=== PATIENT | male | born 1950 | race African-American/Black ===

== ENCOUNTER 2024-10-01 11:05 | Observation (INO) ==
[2024-10-01] MEDS ORDERED: NITROSTAT SL PRN (13:00)
[2024-10-01] MEDS ORDERED: NovoLIN R (or HumuLIN R) SUBCUT PRN (13:05)
[2024-10-01] MEDS ORDERED: VENTOLIN or PROAIR HFA IN PRN (13:05)
[2024-10-01 13:59] LABS: BASOPHILS # (AUTO) 0.1 X10^3/uL (0.0-0.1); BASOPHILS % (AUTO) 1.1 % (0.2-1.0); EOSINOPHILS % (AUTO) 0.5 % (0.9-2.9); HEMATOCRIT 36.9 % (42.0-54.0); LYMPHOCYTES # (AUTO) 1.1 X10^3/uL (1.3-2.9); LYMPHOCYTES % (AUTO) 14.5 % (21.0-51.0); MEAN CORPUSCULAR HEMOGLOBIN 30.1 pg (27.0-34.0); MEAN CORPUSCULAR HGB CONC 32.6 g/dL (33.0-35.0); MEAN CORPUSCULAR VOLUME 92.5 fL (80.0-100.0); MONOCYTES # (AUTO) 1.1 x10^3/uL (0.3-0.8); MONOCYTES % (AUTO) 14.7 % (0.0-13.0); NEUTROPHILS # (AUTO) 5.4 x10^3/uL (2.2-4.8); NEUTROPHILS % (AUTO) 69.2 % (42.0-75.0); PLATELET COUNT 204 X10^3/uL (150.0-450.0); RED BLOOD COUNT 3.99 X10^6/uL (4.7-6.0); RED CELL DISTRIBUTION WIDTH 14.2 % (11.6-16.5); WHITE BLOOD COUNT 7.8 X10^3/uL (3.6-10.0)
[2024-10-01 14:06] LABS: ALANINE AMINOTRANSFERASE 36 Units/L (12-78); ALKALINE PHOSPHATASE 111 Units/L (46-116); ASPARTATE AMINO TRANSFERASE 35 Units/L (15-37); BLOOD UREA NITROGEN 10 mg/dL (7-18); CALCIUM 9.3 mg/dL (8.5-10.1); CARBON DIOXIDE 30.6 mmol/L (21-32); CHLORIDE 98 mmol/L (98-107); COR CA(FOR HYPOALB) 10.1 mg/dL (8.5-10.1); CREATININE 1.23 mg/dL (0.70-1.30); GLUCOSE 54 mg/dL (65-99); POTASSIUM 3.3 mmol/L (3.5-5.1); SODIUM 135 mmol/L (136-145); TOTAL PROTEIN 7.6 g/dL (6.4-8.2); eGFR NON BLACK RACES > 60 (>60)
[2024-10-01] MEDS: LR 1,000 ML IV 1,000 ML IV SCH (14:16)
[2024-10-01] MEDS: LOVENOX INJ 80 MG SYR SC SCH (14:16)
[2024-10-01] MEDS: NEURONTIN CAP 400 MG PO SCH (14:17)
[2024-10-01] MEDS ORDERED: PROVENTIL NEB TX 0.083% 2.5MG/ 3ML NEB PRN (14:18)
[2024-10-01] MEDS: DILAUDID INJ IVP PRN (15:18)
[2024-10-01] MEDS: DILAUDID INJ ONE (15:20)
[2024-10-01] MEDS: D50W ABBOJECT SYR IV ONE (16:00)
[2024-10-01] MEDS: OMNIPAQUE 350 mg/mL 50 mL BTL 50 ML ONE (16:43)
[2024-10-01] MEDS: NS 100 ML IV 100 ML ONE (16:43)
[2024-10-01] MEDS: OMNIPAQUE 350 mg/mL 100 mL BTL 100 ML ONE (16:44)
[2024-10-01] MEDS ORDERED: APRESOLINE INJ 20 MG VIAL ONE (17:02)
[2024-10-01] MEDS: APRESOLINE INJ 20 MG VIAL IVP ONE (17:04)
--- NOTE | 2024-10-01 17:49 | CT ---
EXAM:CTA AORTA WITH RUNOFFHISTORY:gangrenous changes right foot.;COMPARISON:None.TECHNIQUE:CT angiography of the abdominal aorta with bilateral lower extremity runoff with intravenous contrast. Three-dimensional reconstructions and/or MIPS images were produced and reviewed.FINDINGS:CTA aorta: The abdominal aorta tapers normally with multifocal mixed density atherosclerotic plaque. There is a critical stenosis noted at the origin of the celiac axis. The SMA is patent with bulky noncalcified plaque 2 cm beyond the origin. High-grade stenosis is noted at the origin of both renal arteries secondary to mixed density atherosclerotic plaque. The MICHAEL is patent. There is flow in the bilateral common iliac arteries. There is extensive atherosclerotic calcification and disease within the bilateral internal iliac arteries. There is flow in the bilateral external iliac arteries.There is a high-grade stenosis of the proximal right superficial femoral artery. There is a high-grade stenosis of the proximal left superficial femoral artery.Stones are visible in the gallbladder. The portions of the liver visible demonstrate no mass. The kidneys are not obstructed. Portions of the spleen visible appear normal. The pancreas is noninflamed.No pelvic free fluid. Colon diverticulosis. 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 There is extensive, multifocal atherosclerotic plaque within the right calf trifurcation. Trickle flow is noted in the proximal right calf trifurcation. Imaging of the distal trifurcation is performed at a delayed/venous phase limiting evaluation of the arteries. There is venous flow present in the right ankle and foot.There is extensive atherosclerotic plaque within the left superficial femoral artery with multiple foci of moderate luminal narrowing. There is occlusion noted within the left popliteal artery without visible flow in the left calf trifurcation. 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 Distal to the proximal right calf trifurcation the lower extremity runoff examination is delayed and venous phase images are submitted. There is good venous flow noted in the right ankle and foot. Patency of the distal right calf trifurcation can not be discerned.Occlusion of the proximal left popliteal artery.No definitive flow in the left calf trifurcation.All CT scans at this facility use dose modulation, iterative reconstruction, and/or weight based dosing when appropriate to reduce radiation dose to as low as reasonably achievable.THIS IS AN ELECTRONICALLY VERIFIED FINAL REPORT10/01/2024 5:46 PM - Electronically signed by Gaston Kim MD
--- NOTE | 2024-10-01 18:00 | EKG ---
Test Reason : PRE-OP Blood Pressure : */* mmHG Vent. Rate : 103 BPM Atrial Rate : 103 BPM P-R Int : 150 ms QRS Dur : 152 ms QT Int : 394 ms P-R-T Axes : 25 -5 50 degrees QTc Int : 516 ms Sinus tachycardia Right bundle branch block Abnormal ECG No previous ECGs available Confirmed by Gurpreet Mtz MD ([id number]) on 10/02/2024 7:20:14 AM Referred By: Confirmed By: Gurpreet Mtz MD
[2024-10-01] MEDS ORDERED: HIBICLENS WASH ONE (20:24)
[2024-10-01] MEDS: SNACK - Diabetic Appropriate PO SCH (20:33)
[2024-10-01] MEDS: ENTRESTO 24/26 MG TABLET PO SCH (20:34)
[2024-10-01] MEDS: LOPRESSOR TAB 25 MG PO SCH (20:34)
[2024-10-01] MEDS: ZYLOPRIM PO SCH (20:34)
[2024-10-01] MEDS: HIBICLENS WASH EXT ONE (20:34)
[2024-10-02 05:06] LABS: BASOPHILS % (AUTO) 0.3 % (0.2-1.0); EOSINOPHILS % (AUTO) 0.5 % (0.9-2.9); HEMATOCRIT 37.7 % (42.0-54.0); HEMOGLOBIN 12.4 g/dL (13.5-18.0); LYMPHOCYTES % (AUTO) 19.3 % (21.0-51.0); MEAN CORPUSCULAR HEMOGLOBIN 30.5 pg (27.0-34.0); MEAN CORPUSCULAR VOLUME 92.5 fL (80.0-100.0); MEAN PLATELET VOLUME 10.3 fL (7.4-11.0); MONOCYTES # (AUTO) 0.9 x10^3/uL (0.3-0.8); MONOCYTES % (AUTO) 15.9 % (0.0-13.0); NEUTROPHILS # (AUTO) 3.5 x10^3/uL (2.2-4.8); PLATELET COUNT 180 X10^3/uL (150.0-450.0); RED BLOOD COUNT 4.07 X10^6/uL (4.7-6.0); RED CELL DISTRIBUTION WIDTH 14.7 % (11.6-16.5); WHITE BLOOD COUNT 5.4 X10^3/uL (3.6-10.0)
[2024-10-02 05:17] LABS: ALANINE AMINOTRANSFERASE 28 Units/L (12-78); ALBUMIN 2.7 g/dL (3.4-5.0); ALKALINE PHOSPHATASE 104 Units/L (46-116); ASPARTATE AMINO TRANSFERASE 37 Units/L (15-37); BLOOD UREA NITROGEN 8 mg/dL (7-18); CALCIUM 9.2 mg/dL (8.5-10.1); CARBON DIOXIDE 28.7 mmol/L (21-32); CHLORIDE 101 mmol/L (98-107); COR CA(FOR HYPOALB) 10.2 mg/dL (8.5-10.1); CREATININE 0.97 mg/dL (0.70-1.30); MAGNESIUM 1.8 mg/dL (2.0-2.9); POTASSIUM 3.6 mmol/L (3.5-5.1); SODIUM 139 mmol/L (136-145); TOTAL PROTEIN 7.2 g/dL (6.4-8.2); eGFR NON BLACK RACES > 60 (>60)
[2024-10-02 05:22] LABS: GLUCOSE 40 mg/dL (65-99)
[2024-10-02] MEDS: D50W ABBOJECT SYR IV ONE (05:25)
[2024-10-02] MEDS ORDERED: D50W ABBOJECT SYR ONE (05:28)
[2024-10-02] MEDS ORDERED: D5 LR 1,000 ML 1,000 ML IV ONE (05:39)
[2024-10-02] MEDS: D5 LR 1,000 ML 1,000 ML IV SCH (05:40)
[2024-10-02] MEDS ORDERED: CONSULT PHARMACY - POTASSIUM & MAGNESIUM XX SCH (07:00)
--- NOTE | 2024-10-02 07:46 | RAD ---
EXAM:Portable chestHISTORY:Preop vascular surgeryCOMPARISON:NoneFINDINGS:Patient is status post median sternotomy and CABG. Heart is enlarged. No congestive heart failure is noted. No infiltrates or pleural effusions identified. Bony thorax is unremarkable.IMPRESSION:Cardiomegaly without congestive heart failureLungs clearTHIS IS AN ELECTRONICALLY VERIFIED FINAL REPORT10/02/2024 7:43 AM - Electronically signed by Aime Stack MD
[2024-10-02] MEDS: PROTONIX TAB 40 MG PO SCH (08:38)
[2024-10-02] MEDS: K-DUR TAB 20 MEQ PO SCH (08:38)
[2024-10-02] MEDS: CELEBREX PO SCH (08:38)
[2024-10-02] MEDS: DETROL LA 2 MG CAP EXT REL PO SCH (08:38)
[2024-10-02] MEDS: TOVIAZ PO SCH (08:38)
[2024-10-02] MEDS: ASPIRIN EC 81 MG PO SCH (08:38)
[2024-10-02] MEDS: VERSED ONE (08:51)
[2024-10-02] MEDS: FENTANYL VIAL INJ 100 mcg ONE (08:52)
[2024-10-02] MEDS: ZOFRAN INJ 4 MG VIAL ONE (08:53)
[2024-10-02] MEDS: REGLAN INJ 10 MG VIAL ONE (08:53)
[2024-10-02] MEDS: DECADRON INJ ONE (08:53)
[2024-10-02] MEDS: PEPCID 20 MG VIAL ONE (08:53)
[2024-10-02] MEDS: DIPRIVAN VIAL 20 ML ONE ×2 (08:54→11:43)
[2024-10-02] MEDS: HEPARIN SODIUM INJ 5000 UNITS ONE ×2 (09:09→12:13)
[2024-10-02] MEDS: DUONEB 0.5 MG/3 MG (3 mL) NEB ONE (09:57)
[2024-10-02] MEDS: NS 1,000 ML IV 1,000 ML ONE (10:07)
[2024-10-02] MEDS: NS 1,000 ML IV 600 ML IV PRN (10:30)
[2024-10-02] MEDS: VERSED IVP PRN (10:32)
[2024-10-02] MEDS: ZOFRAN INJ 4 MG VIAL IVP PRN (10:33)
[2024-10-02] MEDS: NS 100 ML IV 100 ML ONE (10:34)
[2024-10-02] MEDS: ANCEF VIAL 1 GRAM ONE (10:34)
[2024-10-02] MEDS: PEPCID 20 MG VIAL IVP PRN (10:34)
[2024-10-02] MEDS: REGLAN INJ 10 MG VIAL IVP PRN (10:36)
[2024-10-02] MEDS: ANCEF VIAL 1 GRAM IV PRN (10:38)
[2024-10-02] MEDS: XYLOCAINE 2 % (PLAIN) INJ PRN (10:45)
[2024-10-02] MEDS: KETAMINE HCL IV PRN (10:46)
[2024-10-02] MEDS: PRECEDEX INJ VIAL IVP PRN (10:46)
[2024-10-02] MEDS: DIPRIVAN VIAL 350 ML IVP PRN (10:46)
[2024-10-02] MEDS: DECADRON INJ IVP PRN (10:52)
[2024-10-02] MEDS: EPHEDRINE SULFATE INJ ONE (10:53)
[2024-10-02] MEDS: VISIPAQUE 50 ML ONE (11:04)
[2024-10-02] MEDS: HEPARIN 1,000 UNIT/500 ML-NS 3,000 UNIT/1,500 ML IV.SOLN ONE (11:04)
[2024-10-02] MEDS: VISIPAQUE 100 ML ONE (11:04)
[2024-10-02] MEDS: NEO-SYNEPHRINE INJ ONE (11:04)
[2024-10-02] MEDS: MARCAINE 0.5% ONE (11:04)
[2024-10-02] MEDS: FENTANYL VIAL INJ 100 mcg IVP PRN (11:28)
[2024-10-02] MEDS: NITROGLYCERIN IV PREMIX 50 MG 50 MG/250 ML BAG ONE (12:13)
[2024-10-02] MEDS: HEPARIN SODIUM INJ 5000 UNITS IVP PRN (12:13)
[2024-10-02] MEDS: EPHEDRINE SULFATE INJ IVP PRN (12:16)
[2024-10-02] MEDS: NEO-SYNEPHRINE INJ IVP PRN (12:19)
--- NOTE | 2024-10-02 12:34 | OR.IMMED ---
IMMEDIATE POST-OP NOTE Immediate Post-Op Note Date of surgery/procedure: 10/02/24 Pre-Op Diagnosis: Critical limb threatening ischemia right leg Post-Op Diagnosis: Same Procedure: Aortogram, arteriogram right leg, atherectomy and drug-coated balloon angioplasty of entire right superficial femoral artery, angioplasty right peroneal artery Description of Procedure: Dictated Surgeon/Hook Loader: Porfirio Montero MD, FACS Findings: Severe disease of the takeoff of the right superficial femoral artery and severe disease of the entire superficial femoral artery and in the popliteal artery including the popliteal stent. One-vessel runoff via the peroneal artery with very poor runoff into the right foot. Estimated Blood Loss: 100 cc Complications: None Discharge Progress Notes: Patient returned to the CCU. Will observe.
[2024-10-03] MEDS: SOMA TAB 350 MG PO PRN (00:49)
[2024-10-03 05:12] VITALS: O2SAT 96
[2024-10-03 05:44] LABS: BASOPHILS # (AUTO) 0.1 X10^3/uL (0.0-0.1); BASOPHILS % (AUTO) 0.6 % (0.2-1.0); HEMATOCRIT 37.2 % (42.0-54.0); HEMOGLOBIN 12.1 g/dL (13.5-18.0); LYMPHOCYTES # (AUTO) 0.8 X10^3/uL (1.3-2.9); LYMPHOCYTES % (AUTO) 7.3 % (21.0-51.0); MEAN CORPUSCULAR HEMOGLOBIN 29.9 pg (27.0-34.0); MEAN CORPUSCULAR HGB CONC 32.5 g/dL (33.0-35.0); MEAN CORPUSCULAR VOLUME 92.1 fL (80.0-100.0); MEAN PLATELET VOLUME 10.8 fL (7.4-11.0); MONOCYTES # (AUTO) 1.1 x10^3/uL (0.3-0.8); NEUTROPHILS % (AUTO) 82.1 % (42.0-75.0); PLATELET COUNT 201 X10^3/uL (150.0-450.0); RED BLOOD COUNT 4.04 X10^6/uL (4.7-6.0); RED CELL DISTRIBUTION WIDTH 14.3 % (11.6-16.5)
[2024-10-03 05:57] LABS: ALANINE AMINOTRANSFERASE 24 Units/L (12-78); ALBUMIN 2.6 g/dL (3.4-5.0); ALKALINE PHOSPHATASE 97 Units/L (46-116); ASPARTATE AMINO TRANSFERASE 24 Units/L (15-37); BLOOD UREA NITROGEN 14 mg/dL (7-18); CALCIUM 9.1 mg/dL (8.5-10.1); CARBON DIOXIDE 28.5 mmol/L (21-32); CHLORIDE 100 mmol/L (98-107); COR CA(FOR HYPOALB) 10.2 mg/dL (8.5-10.1); COR NA(FOR HYPERGLY) 140 mmol/L (136-145); CREATININE 1.24 mg/dL (0.70-1.30); GLUCOSE 203 mg/dL (65-99); POTASSIUM 4.9 mmol/L (3.5-5.1); SODIUM 138 mmol/L (136-145); TOTAL PROTEIN 7.1 g/dL (6.4-8.2); eGFR NON BLACK RACES > 60 (>60)
[2024-10-03 06:05] LABS: PLATELET MORPHOLOGY COMMENT NORMAL (NORMAL)
[2024-10-03 08:01] VITALS: TEMP 97.9
--- NOTE | 2024-10-03 09:15 | W.DIS.FURT ---
Summary of Discharge Discharge Summary of Date Date of Exam: 10/03/24 Admission Date Date of Admission: 10/01/24 Admission Diagnosis Hospital Course: 74 yo male with significant cardiac history and history of peripheral vascular disease with left below-knee amputation. Presented to my office with severe rest pain of the right leg and dry gangrenous changes of the right great toe and small toe. He was admitted and placed on therapeutic Lovenox. CT angiogram showed severe disease of the right superficial femoral artery and 1 small area of near complete occlusion with 1 vessel runoff via the right peroneal artery with poor runoff into the right foot. He underwent atherectomy and drug-coated balloon angioplasty of the right superficial femoral artery and angioplasty of the right peroneal artery. Flow did increase to the foot but I am still concerned that he will either lose all of his toes and maybe the foot as well. His pain is relieved at this time. He be discharged home on usual medications plus Percocet 5 mg tablets , 1 6 hours PRN pain ain. We will contin ue his Eliquis 5 milligrams twice daily and continue his Plavix . I will see him next week and decide on the level of amputation he will require. Vital Signs: Vital Signs (72 hours) 10/01/24 13:20 10/01/24 15:18 10/01/24 15:47 Temperature 98.7 F Pulse Rate Respiratory Rate 22 Blood Pressure O2 Sat by Pulse Oximetry Oxygen Delivery Method Room Air Oxygen Flow Rate FIO2% 10/01/24 15:48 10/01/24 13:11 10/01/24 13:15 Temperature Pulse Rate 105 H 86 Respiratory Rate 16 15 14 Blood Pressure O2 Sat by Pulse Oximetry 95 92 L Oxygen Delivery Method Oxygen Flow Rate FIO2% 10/01/24 13:15 10/01/24 13:30 10/01/24 13:45 Temperature Pulse Rate 85 102 H Respiratory Rate 17 17 Blood Pressure 125/56 O2 Sat by Pulse Oximetry 91 L 93 L Oxygen Delivery Method Oxygen Flow Rate FIO2% 10/01/24 14:00 10/01/24 14:15 10/01/24 14:25 Temperature Pulse Rate 99 H 82 98 H Respiratory Rate 14 17 12 Blood Pressure O2 Sat by Pulse Oximetry 94 L 95 94 L Oxygen Delivery Method Oxygen Flow Rate FIO2% 10/01/24 14:25 10/01/24 14:30 10/01/24 14:45 Temperature Pulse Rate 98 H 97 H Respiratory Rate 13 14 Blood Pressure 168/72 O2 Sat by Pulse Oximetry 95 92 L Oxygen Delivery Method Oxygen Flow Rate FIO2% 10/01/24 15:00 10/01/24 15:00 10/01/24 15:15 Temperature Pulse Rate 81 94 H Respiratory Rate 13 16 Blood Pressure 175/75 O2 Sat by Pulse Oximetry 92 L 92 L Oxygen Delivery Method Oxygen Flow Rate FIO2% 10/01/24 15:30 10/01/24 15:45 10/01/24 16:00 Temperature Pulse Rate 103 H 81 88 Respiratory Rate 19 13 15 Blood Pressure O2 Sat by Pulse Oximetry 94 L 94 L 88 L Oxygen Delivery Method Oxygen Flow Rate FIO2% 10/01/24 16:01 10/01/24 16:01 10/01/24 17:51 Temperature 98.7 F Pulse Rate 96 H Respiratory Rate 14 21 Blood Pressure 171/72 O2 Sat by Pulse Oximetry 91 L Oxygen Delivery Method Oxygen Flow Rate FIO2% 10/01/24 18:15 10/01/24 18:21 10/01/24 20:00 Temperature 99.0 F Pulse Rate 107 H Respiratory Rate 20 15 Blood Pressure 133/57 O2 Sat by Pulse Oximetry 98 Oxygen Delivery Method Nasal Cannula Nasal Cannula Oxygen Flow Rate 2 2 FIO2% 28 10/01/24 20:21 10/02/24 03:26 10/01/24 19:00 Temperature Pulse Rate Respiratory Rate 20 Blood Pressure O2 Sat by Pulse Oximetry Oxygen Delivery Method Nasal Cannula Nasal Cannula Oxygen Flow Rate 2 2 FIO2% 28 10/02/24 00:00 10/02/24 04:00 10/02/24 03:56 Temperature 99.3 F 99.0 F Pulse Rate 72 89 Respiratory Rate 17 16 20 Blood Pressure 135/62 144/65 O2 Sat by Pulse Oximetry 97 96 Oxygen Delivery Method Nasal Cannula Nasal Cannula Oxygen Flow Rate 2 2 FIO2% 10/02/24 07:58 10/02/24 09:40 10/02/24 10:00 Temperature Pulse Rate 71 Respiratory Rate 18 Blood Pressure 161/73 O2 Sat by Pulse Oximetry 99 Oxygen Delivery Method Nasal Cannula Nasal Cannula Nasal Cannula Oxygen Flow Rate 2 2 FIO2% 28 10/02/24 07:00 10/02/24 07:15 10/02/24 07:30 Temperature Pulse Rate 74 86 93 H Respiratory Rate 15 16 15 Blood Pressure O2 Sat by Pulse Oximetry 97 97 98 Oxygen Delivery Method Oxygen Flow Rate FIO2% 10/02/24 07:45 10/02/24 08:00 10/02/24 08:01 Temperature 99.4 F Pulse Rate 95 H 95 H Respiratory Rate 19 17 Blood Pressure 189/86 O2 Sat by Pulse Oximetry 100 97 Oxygen Delivery Method Oxygen Flow Rate FIO2% 10/02/24 08:01 10/02/24 08:15 10/02/24 08:30 Temperature Pulse Rate 77 91 H 87 Respiratory Rate 16 13 15 Blood Pressure O2 Sat by Pulse Oximetry 99 99 99 Oxygen Delivery Method Oxygen Flow Rate FIO2% 10/02/24 08:45 10/02/24 09:00 10/02/24 09:15 Temperature Pulse Rate 92 H 95 H 74 Respiratory Rate 17 16 16 Blood Pressure O2 Sat by Pulse Oximetry 100 100 99 Oxygen Delivery Method Oxygen Flow Rate FIO2% 10/02/24 09:30 10/02/24 09:45 10/02/24 14:37 Temperature Pulse Rate 94 H 91 H Respiratory Rate 17 16 18 Blood Pressure O2 Sat by Pulse Oximetry 99 98 Oxygen Delivery Method Oxygen Flow Rate FIO2% 10/02/24 16:45 10/02/24 09:52 10/02/24 12:45 Temperature Pulse Rate 91 H Respiratory Rate 16 Blood Pressure 128/59 O2 Sat by Pulse Oximetry 100 Oxygen Delivery Method Oxygen Flow Rate FIO2% 10/02/24 12:46 10/02/24 13:00 10/02/24 13:15 Temperature Pulse Rate 72 82 72 Respiratory Rate 20 19 Blood Pressure O2 Sat by Pulse Oximetry 97 96 95 Oxygen Delivery Method Oxygen Flow Rate FIO2% 10/02/24 13:30 10/02/24 13:45 10/02/24 13:51 Temperature Pulse Rate 76 83 82 Respiratory Rate 15 17 29 H Blood Pressure O2 Sat by Pulse Oximetry 92 L 97 95 Oxygen Delivery Method Oxygen Flow Rate FIO2% 10/02/24 13:51 10/02/24 14:00 10/02/24 14:00 Temperature Pulse Rate 71 Respiratory Rate 16 Blood Pressure 111/53 116/58 O2 Sat by Pulse Oximetry 95 Oxygen Delivery Method Oxygen Flow Rate FIO2% 10/02/24 14:15 10/02/24 14:15 10/02/24 14:30 Temperature Pulse Rate 71 72 Respiratory Rate 18 18 Blood Pressure 124/59 O2 Sat by Pulse Oximetry 97 97 Oxygen Delivery Method Oxygen Flow Rate FIO2% 10/02/24 14:30 10/02/24 14:45 10/02/24 14:45 Temperature Pulse Rate 73 Respiratory Rate 25 H Blood Pressure 134/63 130/61 O2 Sat by Pulse Oximetry 97 Oxygen Delivery Method Oxygen Flow Rate FIO2% 10/02/24 15:00 10/02/24 15:00 10/02/24 15:15 Temperature Pulse Rate 75 76 Respiratory Rate 12 14 Blood Pressure 129/67 O2 Sat by Pulse Oximetry 98 98 Oxygen Delivery Method Oxygen Flow Rate FIO2% 10/02/24 15:15 10/02/24 15:30 10/02/24 15:30 Temperature Pulse Rate 90 Respiratory Rate 13 Blood Pressure 125/61 128/69 O2 Sat by Pulse Oximetry 97 Oxygen Delivery Method Oxygen Flow Rate FIO2% 10/02/24 15:44 10/02/24 15:45 10/02/24 15:47 Temperature Pulse Rate 91 H 91 H Respiratory Rate 13 15 Blood Pressure 137/68 O2 Sat by Pulse Oximetry 98 97 Oxygen Delivery Method Oxygen Flow Rate FIO2% 10/02/24 16:00 10/02/24 16:00 10/02/24 15:07 Temperature Pulse Rate 90 Respiratory Rate 16 20 Blood Pressure 142/81 O2 Sat by Pulse Oximetry 97 Oxygen Delivery Method Oxygen Flow Rate FIO2% 10/02/24 16:15 10/02/24 16:15 10/02/24 16:30 Temperature 97.7 F Pulse Rate 88 Respiratory Rate 14 Blood Pressure 146/70 122/78 O2 Sat by Pulse Oximetry 99 Oxygen Delivery Method Oxygen Flow Rate FIO2% 10/02/24 16:30 10/02/24 16:45 10/02/24 16:45 Temperature Pulse Rate 79 90 Respiratory Rate 12 13 Blood Pressure 130/69 O2 Sat by Pulse Oximetry 93 L 97 Oxygen Delivery Method Oxygen Flow Rate FIO2% 10/02/24 17:00 10/02/24 17:00 10/02/24 17:15 Temperature Pulse Rate 96 H Respiratory Rate 12 Blood Pressure 134/71 120/61 O2 Sat by Pulse Oximetry 98 Oxygen Delivery Method Oxygen Flow Rate FIO2% 10/02/24 17:15 10/02/24 17:15 10/02/24 17:30 Temperature Pulse Rate 93 H 96 H Respiratory Rate 13 18 19 Blood Pressure O2 Sat by Pulse Oximetry 99 98 Oxygen Delivery Method Oxygen Flow Rate FIO2% 10/02/24 17:45 10/02/24 18:00 10/02/24 18:00 Temperature Pulse Rate 101 H 97 H Respiratory Rate 24 13 Blood Pressure 135/73 O2 Sat by Pulse Oximetry 97 96 Oxygen Delivery Method Oxygen Flow Rate FIO2% 10/02/24 18:15 10/02/24 18:30 10/02/24 18:45 Temperature Pulse Rate 96 H 93 H 95 H Respiratory Rate 12 21 11 L Blood Pressure O2 Sat by Pulse Oximetry 96 97 96 Oxygen Delivery Method Oxygen Flow Rate FIO2% 10/02/24 19:00 10/02/24 19:00 10/02/24 20:00 Temperature Pulse Rate 93 H 99 H Respiratory Rate 12 14 Blood Pressure 129/67 133/61 O2 Sat by Pulse Oximetry 96 96 Oxygen Delivery Method Nasal Cannula Oxygen Flow Rate 2 FIO2% 10/02/24 21:36 10/02/24 21:00 10/02/24 20:15 Temperature 98.5 F Pulse Rate 99 H Respiratory Rate 16 14 Blood Pressure 143/75 O2 Sat by Pulse Oximetry 99 Oxygen Delivery Method Nasal Cannula Oxygen Flow Rate 2 FIO2% 28 10/02/24 20:15 10/02/24 22:00 10/02/24 23:00 Temperature Pulse Rate 100 H 103 H 101 H Respiratory Rate 14 14 Blood Pressure 149/67 135/62 O2 Sat by Pulse Oximetry 100 96 96 Oxygen Delivery Method Oxygen Flow Rate FIO2% 10/02/24 22:06 10/03/24 00:00 10/03/24 01:00 Temperature 98.0 F Pulse Rate 97 H 73 Respiratory Rate 15 16 13 Blood Pressure 131/79 111/68 O2 Sat by Pulse Oximetry 97 95 Oxygen Delivery Method Oxygen Flow Rate FIO2% 10/03/24 02:00 10/03/24 03:00 10/03/24 04:00 Temperature 98.1 F Pulse Rate 95 H 70 67 Respiratory Rate 14 14 14 Blood Pressure 117/54 124/60 145/60 O2 Sat by Pulse Oximetry 95 95 95 Oxygen Delivery Method Oxygen Flow Rate FIO2% 10/03/24 05:00 10/03/24 05:59 10/02/24 22:01 Temperature Pulse Rate 67 69 97 H Respiratory Rate 14 14 15 Blood Pressure 113/55 120/56 O2 Sat by Pulse Oximetry 96 96 95 Oxygen Delivery Method Oxygen Flow Rate FIO2% 10/02/24 22:15 10/02/24 22:30 10/02/24 22:45 Temperature Pulse Rate 101 H 102 H 102 H Respiratory Rate 15 16 11 L Blood Pressure O2 Sat by Pulse Oximetry 94 L 95 94 L Oxygen Delivery Method Oxygen Flow Rate FIO2% 10/02/24 23:00 10/02/24 23:01 10/02/24 23:01 Temperature Pulse Rate 84 84 Respiratory Rate 16 15 Blood Pressure 135/62 O2 Sat by Pulse Oximetry 91 L 94 L Oxygen Delivery Method Oxygen Flow Rate FIO2% 10/02/24 23:15 10/02/24 23:30 10/02/24 23:45 Temperature Pulse Rate 83 105 H 81 Respiratory Rate 15 19 16 Blood Pressure O2 Sat by Pulse Oximetry 95 92 L 98 Oxygen Delivery Method Oxygen Flow Rate FIO2% 10/03/24 00:00 10/03/24 00:00 10/03/24 00:15 Temperature Pulse Rate 78 72 Respiratory Rate 19 15 Blood Pressure 131/79 O2 Sat by Pulse Oximetry 95 97 Oxygen Delivery Method Oxygen Flow Rate FIO2% 10/03/24 00:30 10/03/24 00:45 10/03/24 01:00 Temperature Pulse Rate 72 97 H 73 Respiratory Rate 12 21 15 Blood Pressure O2 Sat by Pulse Oximetry 96 92 L 94 L Oxygen Delivery Method Oxygen Flow Rate FIO2% 10/03/24 01:01 10/03/24 01:01 10/03/24 01:15 Temperature Pulse Rate 98 H 71 Respiratory Rate 21 16 Blood Pressure 112/68 O2 Sat by Pulse Oximetry 93 L 96 Oxygen Delivery Method Oxygen Flow Rate FIO2% 10/03/24 01:30 10/03/24 01:45 10/03/24 02:00 Temperature Pulse Rate 69 68 82 Respiratory Rate 14 15 14 Blood Pressure O2 Sat by Pulse Oximetry 99 98 Oxygen Delivery Method Oxygen Flow Rate FIO2% 10/03/24 02:01 10/03/24 02:01 10/03/24 02:15 Temperature Pulse Rate 72 70 Respiratory Rate 14 15 Blood Pressure 117/54 O2 Sat by Pulse Oximetry Oxygen Delivery Method Oxygen Flow Rate FIO2% 10/03/24 02:30 10/03/24 02:45 10/03/24 03:00 Temperature Pulse Rate 69 68 Respiratory Rate 14 Blood Pressure 124/60 O2 Sat by Pulse Oximetry Oxygen Delivery Method Oxygen Flow Rate FIO2% 10/03/24 03:00 10/03/24 03:15 10/03/24 03:30 Temperature Pulse Rate 92 H 68 69 Respiratory Rate 17 14 15 Blood Pressure O2 Sat by Pulse Oximetry Oxygen Delivery Method Oxygen Flow Rate FIO2% 10/03/24 03:45 10/03/24 04:00 10/03/24 04:00 Temperature Pulse Rate 68 67 Respiratory Rate 15 15 Blood Pressure 145/60 O2 Sat by Pulse Oximetry Oxygen Delivery Method Oxygen Flow Rate FIO2% 10/03/24 04:15 10/03/24 04:30 10/03/24 04:45 Temperature Pulse Rate 69 67 66 Respiratory Rate 15 13 14 Blood Pressure O2 Sat by Pulse Oximetry Oxygen Delivery Method Oxygen Flow Rate FIO2% 10/03/24 05:00 10/03/24 05:01 10/03/24 05:01 Temperature Pulse Rate 67 67 Respiratory Rate 15 15 Blood Pressure 113/55 O2 Sat by Pulse Oximetry Oxygen Delivery Method Oxygen Flow Rate FIO2% 10/03/24 05:15 10/03/24 05:30 10/03/24 05:45 Temperature Pulse Rate 67 67 68 Respiratory Rate 13 14 14 Blood Pressure O2 Sat by Pulse Oximetry Oxygen Delivery Method Oxygen Flow Rate FIO2% 10/03/24 06:00 10/03/24 06:00 10/03/24 06:15 Temperature Pulse Rate 69 68 Respiratory Rate 15 14 Blood Pressure 120/56 O2 Sat by Pulse Oximetry Oxygen Delivery Method Oxygen Flow Rate FIO2% 10/03/24 06:30 10/03/24 06:45 10/03/24 07:00 Temperature Pulse Rate 65 67 Respiratory Rate 13 14 Blood Pressure 128/59 O2 Sat by Pulse Oximetry Oxygen Delivery Method Oxygen Flow Rate FIO2% 10/03/24 07:00 10/03/24 07:15 10/03/24 07:30 Temperature Pulse Rate 69 68 67 Respiratory Rate 20 14 15 Blood Pressure O2 Sat by Pulse Oximetry Oxygen Delivery Method Oxygen Flow Rate FIO2% 10/03/24 07:45 10/03/24 07:59 10/03/24 08:00 Temperature 97.9 F Pulse Rate 68 68 Respiratory Rate 14 15 Blood Pressure 147/64 O2 Sat by Pulse Oximetry Oxygen Delivery Method Oxygen Flow Rate FIO2% 10/03/24 08:36 Temperature Pulse Rate Respiratory Rate Blood Pressure O2 Sat by Pulse Oximetry Oxygen Delivery Method Nasal Cannula Oxygen Flow Rate 2 FIO2% 28 Labs: Laboratory Last Values WBC 11.0 X10^3/uL (3.6-10.0) H 10/03/24 04:25 RBC 4.04 X10^6/uL (4.7-6.0) L 10/03/24 04:25 Hgb 12.1 g/dL (13.5-18.0) L 10/03/24 04:25 Hct 37.2 % (42.0-54.0) L 10/03/24 04: MCV 92.1 fL (80.0-100.0) 10/03/24 04: MCH 29.9 pg (27.0-34.0) 10/03/24 04: MCHC 32.5 g/dL (33.0-35.0) L 10/03/24: RDW 14.3 % (11.6-16.5) 10/03/24: Plt Count 201 X10^3/uL (150.0-450.0) 10/03/24 04: Plt Count Comment Adequate (ADEQUATE) 10/03/24: MPV 10.8 fL (7.4-11.0) 10/03/24 04: Neut % (Auto) 82.1 % (42.0-75.0) H 10/03/24 04: Lymph % (Auto) 7.3 % (21.0-51.0) L 10/03/24 04:25 [place] % (Auto) 10.0 % (0.0-13.0) 10/03/24: Eos % (Auto) 0.0 % (0.9-2.9) L 10/03/24 04: Baso % (Auto) 0.6 % (0.2-1.0) 10/03/24: Neut # (Auto) 9.0 x10^3/uL (2.2-4.8) H 10/03/24 04:25 Lymph # (Auto) 0.8 X10^3/uL (1.3-2.9) L 10/03/24 04:25 [place] # (Auto) 1.1 x10^3/uL (0.3-0.8) H 10/03/24 04:25 Eos # (Auto) 0.0 x10^3/uL (0.0-0.2) 10/03/24 04:25 Baso # (Auto) 0.1 X10^3/uL (0.0-0.1) 10/03/24 04:25 Absolute Nucleated RBC 0.0 /100WBC 10/03/24 04:25 Total Counted 100 10/03/24 04:25 Neutrophils % (Manual) 75 % (39-76) 10/03/24 04:25 Lymphocytes % (Manual) 15 % (13-43) 10/03/24 04:25 Monocytes % (Manual) 10 % (4-9) H 10/03/24 04:25 Plt Morphology Comment Normal (NORMAL) 10/03/24 04:25 RBC Morphology Normal (NORMAL) 10/03/24 04:25 Sodium 138 mmol/L (136-145) 10/03/24 04:25 Corrected Sodium 140 mmol/L (136-145) 10/03/24 04:25 Potassium 4.9 mmol/L (3.5-5.1) 10/03/24 04:25 Chloride 100 mmol/L (98-107) 10/03/24 04:25 Carbon Dioxide 28.5 mmol/L (21-32) 10/03/24 04:25 BUN 14 mg/dL (7-18) 10/03/24 04:25 Creatinine 1.24 mg/dL (0.70-1.30) 10/03/24 04:25 Est GFR (MDRD) Af Amer > 60 (>60) 10/03/24 04:25 Est GFR (MDRD) Non-Af > 60 (>60) 10/03/24 04:25 Glucose 203 mg/dL (65-99) H 10/03/24 04:25 POC Glucose (mg/dL) 191 mg/dL (65-99) H 10/03/24 05:08 Calcium 9.1 mg/dL (8.5-10.1) 10/03/24 04:25 Corrected Calcium 10.2 mg/dL (8.5-10.1) H 10/03/24 04:25 Magnesium 1.8 mg/dL (2.0-2.9) L 10/02/24 04:18 Total Bilirubin 0.80 mg/dL (0.2-1.0) 10/03/24 04:25 AST 24 Units/L (15-37) 10/03/24 04:25 ALT 24 Units/L (12-78) 10/03/24 04:25 Alkaline Phosphatase 97 Units/L (46-116) 10/03/24 04:25 Total Protein 7.1 g/dL (6.4-8.2) 10/03/24 04:25 Albumin 2.6 g/dL (3.4-5.0) L 10/03/24 04:25 Globulin 4.5 g/dL (2.5-4.5) 10/03/24 04:25 Albumin/Globulin Ratio 0.6 Ratio (1.1-2.1) L 10/03/24 04:25 Reason For Visit: ISCHEMIC RLE Discharge Date Discharge Date: 10/03/24 Discharge Diagnosis All Active Problems (Updated 10/03/24 @ 09:11 by Porfirio Montero) Atherosclerosis of [place] arteries of extremities with rest pain, right leg (Acute) Plan of Treatment: Continue with present treatment and follow up plan. Pt is to keep follow up appointment as instructed and take medications as ordered. Discharge Medications Discharge Medications: No Known Drug Allergies [NKDA] Allergy (Verified 10/01/24 13:25) CONTINUE taking the following medications allopurinol 100 mg tablet 200 mg PO QDAY 10/01/24 [History] amlodipine 10 mg tablet 10 mg PO QDAY 10/01/24 [History] apixaban 5 mg tablet (Eliquis) 5 mg PO BID 10/01/24 [History] carisoprodol 350 mg tablet 350 mg PO TID PRN 10/01/24 [History] celecoxib 100 mg capsule 100 mg PO QDAY 10/01/24 [History] clopidogrel 75 mg tablet 75 mg PO QDAY 10/01/24 [History] colchicine 0.6 mg tablet 0.6 mg PO Q12H 10/01/24 [History] dapagliflozin propanediol 10 mg tablet (Farxiga) 10 mg PO QDAY 10/01/24 [History] famotidine 20 mg tablet 20 mg PO BID 10/01/24 [History] fesoterodine 8 mg tablet,extended release 24 hr 8 mg PO DAILY 10/01/24 [History] gabapentin 800 mg tablet 800 mg PO QID 10/01/24 [History] glipizide 10 mg tablet, extended release 24 hr 10 mg PO BID 10/01/24 [History] insulin degludec 200 unit/mL (3 mL) subcutaneous pen (Tresiba FlexTouch U-200 insulin) 55 unit subcut DAILY 10/01/24 [History] meloxicam 7.5 mg tablet 7.5 mg PO QDAY 10/01/24 [History] metoprolol tartrate 25 mg tablet 25 mg PO BID 10/01/24 [History] moexipril 15 mg tablet 15 mg PO BID 10/01/24 [History] nitroglycerin 0.4 mg sublingual tablet 0.4 mg sublingual USEASDIRECTD 10/01/24 [History] oxycodone 15 mg tablet 15 mg PO QID PRN 10/01/24 [History] sacubitril 24 mg-valsartan 26 mg tablet (Entresto) 1 tab PO BID 10/01/24 [History] tizanidine 2 mg tablet 4 mg PO TID 10/01/24 [History] tizanidine 4 mg tablet 4 mg PO TID 10/01/24 [History] Discharge Disposition Assessment: see hospital course Discharge Plan Discharge Plan Hospital Course: 74 yo male with significant cardiac history and history of peripheral vascular disease with left below-knee amputation. Presented to my office with severe rest pain of the right leg and dry gangrenous changes of the right great toe and small toe. He was admitted and placed on therapeutic Lovenox. CT angiogram showed severe disease of the right superficial femoral artery and 1 small area of near complete occlusion with 1 vessel runoff via the right peroneal artery with poor runoff into the right foot. He underwent atherectomy and drug-coated balloon angioplasty of the right superficial femoral artery and angioplasty of the right peroneal artery. Flow did increase to the foot but I am still concerned that he will either lose all of his toes and maybe the foot as well. His pain is relieved at this time. He be discharged home on usual medications plus Percocet 5 mg tablets , 1 6 hours PRN pain ain. We will contin ue his Eliquis 5 milligrams twice daily and continue his Plavix . I will see him next week and decide on the level of amputation he will require. Patient Disposition: 01 HOME, SELF-CARE Condition: Stable Health Concerns: Post Hospitalization: new medications and changes needed to prevent readmission or further decline. Pt educated and given instructions on all concerns. Care Plan Goals: see hospital course Plan of Treatment: Continue with present treatment and follow up plan. Pt is to keep follow up appointment as instructed and take medications as ordered. Assessment: see hospital course Prescription drug monitoring program results: PDMP reviewed with concerns identified Prescriptions: New oxycodone-acetaminophen [Percocet] 5-325 mg tablet 1 tab PO Q6H MDD 4 PRNQty: 30 0RF Continued carisoprodol 350 mg tablet 350 mg PO TID PRN tizanidine 2 mg tablet 4 mg PO TID tizanidine 4 mg tablet 4 mg PO TID glipizide 10 mg tablet extended release 24hr 10 mg PO BID clopidogrel 75 mg tablet 75 mg PO QDAY allopurinol 100 mg tablet 200 mg PO QDAY oxycodone 15 mg tablet 15 mg PO QID PRN meloxicam 7.5 mg tablet 7.5 mg PO QDAY famotidine 20 mg tablet 20 mg PO BID gabapentin 800 mg tablet 800 mg PO QID amlodipine 10 mg tablet 10 mg PO QDAY moexipril 15 mg tablet 15 mg PO BID nitroglycerin 0.4 mg tablet, sublingual 0.4 mg sublingual USEASDIRECTD Rx Instructions: PLACE 1 TABLET UNDER TONGUE EVERY 5 MINUTES UP 3 DOSES NEEDED. colchicine 0.6 mg tablet 0.6 mg PO Q12H celecoxib 100 mg capsule 100 mg PO QDAY metoprolol tartrate 25 mg tablet 25 mg PO BID fesoterodine 8 mg tablet extended release 24 hr 8 mg PO DAILY Eliquis 5 mg tablet 5 mg PO BID insulin degludec [Tresiba FlexTouch U-200] 200 unit/mL (3 mL) insulin pen 55 unit SUBCUT DAILY Patient Comments: [NO ORIGINAL SIG] dapagliflozin propanediol [Farxiga] 10 mg tablet 10 mg PO QDAY Entresto 24-26 mg tablet 1 tab PO BID Orders to Discharge Patient Discharge Orders: Discharge (Routine); Ordered 10/03/24 Ordered By: Porfirio Montero Follow ups/Referrals Follow ups/Referrals: Ramon Sol [CONSULTING PHYSICIAN] - 10/09/24 10:00 am (Dr. [facility].) KEVIN CARRANZA [Primary Care Provider] - 1 WEEK Porfirio Montero [STAFF PHYSICIAN] - 10/15/24 3:30 pm Instructions Stand Alone Forms: Excuse From Work or School, Find Help Web Site, Post Hospital Follow Up Care
[2024-10-03 11:13] VITALS: BP 128/58; PULSE 70; RESP 15
--- NOTE | 2024-10-05 12:38 | DR.OPNOTE ---
OP NOTE Pre-Op Diagnosis: Critical ischemia right leg Procedure Date Date Of Procedure: 10/02/24 Procedure: PROCEDURE: Diagnostic aortogram, diagnostic arteriogram right leg, atherectomy and drug-coated balloon angioplasty of the right superficial femoral and popliteal arteries, angioplasty of the right peroneal artery NARRATIVE: The patient was taken to the operative suite and placed in the supine position. The left groin and entire right leg were prepped and draped in sterile fashion. Patient was given intravenous sedation supervised by myself. Timeout for the procedure obtained. Ultrasound used to identify the femoral artery in the left groin and the skin overlying it infiltrated with 0.5% Marcaine. Ultrasound used to guide puncture of the left femoral artery and a 0.012 inch guidewire placed. Incision made over the guidewire at the skin edge with a #11 knife blade and the micro sheath placed over the guidewire into the femoral artery. Small wire exchanged for a 0.035 inch a Advantage Glidewire and the micro sheath exchanged for a 5 [place] vascular sheath. Patient given 5000 units of intravenous heparin. Omni catheter placed over the guidewire into the aorta and power injector used to perform aortogram showing normal patent aorta and iliac artery. The Omni catheter was then used to direct the guidewire down the right common iliac artery to the distal right external iliac artery. The Omni catheter exchanged for a [place] catheter and sequential arteriograms performed of the right leg showing severe disease of the near entire right superficial femoral artery and popliteal artery with 1 area of near total occlusion in the distal superficial femoral artery. The [place] catheter removed and over the guidewire the 5 [place] sheath was exchanged for a 7 [place] Catpult Sheath which was parked in the right external iliac artery. Water[place] catheter and the 0.035 guidewire used to traverse the arteries of the right leg ultimately ending in right peroneal artery all the way to the ankle. [place] catheter used to exchange 0.035 inch wire for a 0.014 inch Thruway wire. Over the 0.014 inch wire we placed the Jetstream atherectomy device and performed atherectomy of the entire right superficial femoral artery and popliteal artery. The Jetstream device removed and we were able to inflate the entire right superficial femoral artery using 2 [place] 6 mm x 200 mm drug-coated balloons and a 6 mm 150 mm [place] coated balloon with overlap of each. Each Inflated for 3 minutes. Once this was completed over the wire we placed a 2.5 mm [place] balloon measuring 220 mm in length and performed angioplasty of the right peroneal artery. It should be noted there was very poor flow into the right foot but it was now improved. After arterial intervention follow-up arteriogram performed showed excellent outcome. Wires and devices removed from the Catapult sheath. This sheath pulled back into the aorta and a 0.035 guidewire placed. Catapult sheath exchanged over the wire for a Angio-Seal device used to close the puncture of the left femoral artery. Patient taken to same-day surgery in good condition. Type of Anesthesia: Local (0.5% Marcaine) Anesthesia Comment: Plus MAC Findings: Significatn disease of the right superficial femoral artery with 1 area of near total occlusion, one-vessel runoff via the right peroneal artery with severe disease Type of Fluids Used:: Lactated Ringers Total Amount of Fluid Infused:: 600cc EBL: 100cc Complications:: none Needle/Sponge Count:: correct Disposition/Condition: Pt. tolerated procedure without difficulty. Taken to the CCU in stable conditi on.
== END 2024-10-03 12:10 | disposition home or self-care (01) ==
LOC: ICU
PROVIDERS: ADMIT Surgery; ATTEND Surgery
DX: Z01.810 Encounter for preprocedural cardiovascular examination; I10 Essential (primary) hypertension; Z72.0 Tobacco use; E11.65 Type 2 diabetes mellitus with hyperglycemia; J44.9 Chronic obstructive pulmonary disease, unspecified; I96 Gangrene, not elsewhere classified; Z79.01 Long term (current) use of anticoagulants; I25.119 Atherosclerotic heart disease of native coronary artery with unspecified angina pectoris; Z89.512 Acquired absence of left leg below knee; I70.221 Atherosclerosis of native arteries of extremities with rest pain, right leg; M19.071 Primary osteoarthritis, right ankle and foot; R94.31 Abnormal electrocardiogram [ECG] [EKG]; R00.0 Tachycardia, unspecified

== ENCOUNTER 2024-10-07 09:48 | Observation (INO) ==
[2024-10-07] MEDS: LR 1,000 ML IV 1,000 ML IV SCH (10:30)
[2024-10-07 10:41] LABS: BASOPHILS # (AUTO) 0.1 X10^3/uL (0.0-0.1); BASOPHILS % (AUTO) 0.6 % (0.2-1.0); EOSINOPHILS # (AUTO) 0.1 x10^3/uL (0.0-0.2); EOSINOPHILS % (AUTO) 0.7 % (0.9-2.9); HEMATOCRIT 37.6 % (42.0-54.0); HEMOGLOBIN 12.1 g/dL (13.5-18.0); LYMPHOCYTES # (AUTO) 1.8 X10^3/uL (1.3-2.9); LYMPHOCYTES % (AUTO) 16.9 % (21.0-51.0); MEAN CORPUSCULAR HEMOGLOBIN 29.9 pg (27.0-34.0); MEAN CORPUSCULAR HGB CONC 32.1 g/dL (33.0-35.0); MEAN CORPUSCULAR VOLUME 93.4 fL (80.0-100.0); MEAN PLATELET VOLUME 9.6 fL (7.4-11.0); MONOCYTES # (AUTO) 1.4 x10^3/uL (0.3-0.8); MONOCYTES % (AUTO) 12.6 % (0.0-13.0); NEUTROPHILS # (AUTO) 7.5 x10^3/uL (2.2-4.8); NEUTROPHILS % (AUTO) 69.2 % (42.0-75.0); PLATELET COUNT 239 X10^3/uL (150.0-450.0); RED BLOOD COUNT 4.03 X10^6/uL (4.7-6.0); RED CELL DISTRIBUTION WIDTH 14.4 % (11.6-16.5); WHITE BLOOD COUNT 10.8 X10^3/uL (3.6-10.0)
[2024-10-07] MEDS: DILAUDID INJ IVP PRN (11:03)
[2024-10-07 11:06] LABS: ALANINE AMINOTRANSFERASE 32 Units/L (12-78); ALBUMIN 3.3 g/dL (3.4-5.0); ALKALINE PHOSPHATASE 101 Units/L (46-116); ASPARTATE AMINO TRANSFERASE 33 Units/L (15-37); BLOOD UREA NITROGEN 15 mg/dL (7-18); CALCIUM 9.3 mg/dL (8.5-10.1); CARBON DIOXIDE 29.3 mmol/L (21-32); CHLORIDE 95 mmol/L (98-107); COR CA(FOR HYPOALB) 9.9 mg/dL (8.5-10.1); CREATININE 1.63 mg/dL (0.70-1.30); POTASSIUM 3.8 mmol/L (3.5-5.1); SODIUM 134 mmol/L (136-145); TOTAL PROTEIN 8.3 g/dL (6.4-8.2); eGFR NON BLACK RACES 44 (>60)
[2024-10-07 11:08] LABS: GLUCOSE 49 mg/dL (65-99)
[2024-10-07] MEDS ORDERED: NovoLIN R (or HumuLIN R) SUBCUT PRN (11:16)
[2024-10-07] MEDS: D50W ABBOJECT SYR IV ONE ×2 (11:27→20:36)
[2024-10-07 14:06] VITALS: BMI 30.2
[2024-10-07] MEDS ORDERED: ZANAFLEX PO PRN (14:46)
[2024-10-07] MEDS: NEURONTIN CAP 400 MG PO SCH (16:49)
[2024-10-07] MEDS: ROXICODONE TAB 15 MG PO PRN (16:53)
[2024-10-07] MEDS: GLUCOTROL PO SCH (18:23)
[2024-10-07] MEDS: NITROSTAT SL ONE (18:25)
[2024-10-07] MEDS ORDERED: D5 LR 1,000 ML 1,000 ML IV ONE (20:27)
[2024-10-07] MEDS: SNACK - Diabetic Appropriate PO SCH (20:36)
[2024-10-07] MEDS: D5 LR 1,000 ML 1,000 ML IV SCH (20:36)
[2024-10-07] MEDS: LOPRESSOR TAB 25 MG PO SCH (20:37)
[2024-10-07] MEDS: COLCRYS TAB 0.6 MG PO SCH (20:37)
[2024-10-07] MEDS: ENTRESTO 24/26 MG TABLET PO SCH (20:38)
[2024-10-07] MEDS ORDERED: ELIQUIS PO SCH (21:00)
[2024-10-07] MEDS: PATIENT'S HOME MEDICATION PO SCH (22:20)
[2024-10-08 06:11] LABS: BASOPHILS % (AUTO) 0.4 % (0.2-1.0); EOSINOPHILS % (AUTO) 0.4 % (0.9-2.9); HEMATOCRIT 35.1 % (42.0-54.0); HEMOGLOBIN 11.4 g/dL (13.5-18.0); LYMPHOCYTES % (AUTO) 10.9 % (21.0-51.0); MEAN CORPUSCULAR HEMOGLOBIN 30.1 pg (27.0-34.0); MEAN CORPUSCULAR HGB CONC 32.5 g/dL (33.0-35.0); MEAN CORPUSCULAR VOLUME 92.5 fL (80.0-100.0); MEAN PLATELET VOLUME 9.4 fL (7.4-11.0); MONOCYTES # (AUTO) 1.2 x10^3/uL (0.3-0.8); MONOCYTES % (AUTO) 13.4 % (0.0-13.0); NEUTROPHILS # (AUTO) 6.9 x10^3/uL (2.2-4.8); NEUTROPHILS % (AUTO) 74.9 % (42.0-75.0); PLATELET COUNT 199 X10^3/uL (150.0-450.0); RED CELL DISTRIBUTION WIDTH 14.1 % (11.6-16.5); WHITE BLOOD COUNT 9.2 X10^3/uL (3.6-10.0)
[2024-10-08 06:35] LABS: ALANINE AMINOTRANSFERASE 28 Units/L (12-78); ALBUMIN 2.7 g/dL (3.4-5.0); ALKALINE PHOSPHATASE 91 Units/L (46-116); ASPARTATE AMINO TRANSFERASE 26 Units/L (15-37); BLOOD UREA NITROGEN 13 mg/dL (7-18); CALCIUM 9.3 mg/dL (8.5-10.1); CARBON DIOXIDE 30.2 mmol/L (21-32); CHLORIDE 100 mmol/L (98-107); COR CA(FOR HYPOALB) 10.3 mg/dL (8.5-10.1); CREATININE 1.28 mg/dL (0.70-1.30); GLUCOSE 108 mg/dL (65-99); MAGNESIUM 1.9 mg/dL (2.0-2.9); POTASSIUM 3.9 mmol/L (3.5-5.1); SODIUM 137 mmol/L (136-145); eGFR NON BLACK RACES 58 (>60)
[2024-10-08] MEDS: MAG-OX TAB PO SCH (08:56)
[2024-10-08] MEDS: ZYLOPRIM PO SCH (08:57)
[2024-10-08] MEDS: MOBIC TAB 15 MG PO SCH (08:58)
[2024-10-08] MEDS: NORVASC TAB 10 MG PO SCH (08:58)
[2024-10-08] MEDS: CELEBREX PO SCH (08:59)
[2024-10-08] MEDS: TOVIAZ PO SCH (09:00)
[2024-10-08] MEDS ORDERED: TRESIBA U-100 INSULIN SC SCH (09:00)
[2024-10-08] MEDS ORDERED: PLAVIX PO SCH (09:00)
[2024-10-08] MEDS: FARXIGA PO SCH (09:09)
[2024-10-08] MEDS: ZOSYN VIAL 3.375 GRAMS 3.375 G in NS 100 ML IV 100 ML IV SCH (10:24)
[2024-10-08] MEDS: MAGNESIUM SULFATE 1 GRAM/100 mL PREMIX 1 G/100 ML BAG IV ONE (10:24)
[2024-10-08] MEDS: NS 250 ML IV 25 ML IV PRN (10:24)
[2024-10-08] MEDS: APRESOLINE INJ 20 MG VIAL IVP ONE (11:31)
--- NOTE | 2024-10-08 11:42 | DR.H&P ---
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 CT angiogram showed severe disease of the right superficial femoral artery and one-vessel runoff via the peroneal artery. Last week he had undergone admission and intervention with atherectomy and balloon angioplasty of the right superficial artery and atherectomy of the occluded right popliteal artery stent and angioplasty of the peroneal artery which is only runoff to the foot and the runoff was poor. His rest pain has been resolved. he was discharged home with a plan to follow-up this week in the office and assess whether amputation would be necessary. He now what appears to be maggot infestation of the right foot and evaluated in the emergency room in [place], [place] .He presented here for further evaluation and is admitted. History of Present Illness History of Present Illness: as above . Past Medical History Past Medical History: CHF, COPD, Coronary Artery Disease (History of coronary artery bypass grafting), CVA (History of CVA), Diabetes, Gout and Hypertension Past Surgical History Surgical History: Angioplasty/Stents and Other (hx left below knee amputation) Social History Does patient currently use any type of tobacco product: Yes Type of Tobacco Use: Cigarettes How many years tobacco product used: 50 Packs per day or dips/chews per day: 1 Alcohol Use: None Drug Use: None Medications Home Medications: Home Medications Medication Instructions Recorded Confirmed Type allopurinol 100 mg tablet 200 mg PO QDAY 10/01/24 10/07/24 History amlodipine 10 mg tablet (Norvasc) 10 mg PO QDAY 10/01/24 10/07/24 History apixaban 5 mg tablet (Eliquis) 5 mg PO BID 10/01/24 10/07/24 History carisoprodol 350 mg tablet 350 mg PO TID PRN 10/01/24 10/07/24 History celecoxib 100 mg capsule (Celebrex) 100 mg PO QDAY 10/01/24 10/07/24 History clopidogrel 75 mg tablet (Plavix) 75 mg PO QDAY 10/01/24 10/07/24 History colchicine 0.6 mg tablet (Colcrys) 0.6 mg PO Q12H 10/01/24 10/07/24 History dapagliflozin propanediol 10 mg 10 mg PO QDAY 10/01/24 10/07/24 History tablet (Farxiga) fesoterodine 8 mg tablet,extended 8 mg PO DAILY 10/01/24 10/07/24 History release 24 hr (Toviaz) gabapentin 800 mg tablet 800 mg PO QID 10/01/24 10/07/24 History (Neurontin) glipizide 10 mg tablet, extended 10 mg PO BID 10/01/24 10/07/24 History release 24 hr (Glucotrol XL) insulin degludec 200 unit/mL (3 55 unit subcut DAILY 10/01/24 10/07/24 History mL) subcutaneous pen (Tresiba FlexTouch U-200 insulin) meloxicam 7.5 mg tablet 7.5 mg PO QDAY 10/01/24 10/07/24 History metoprolol tartrate 25 mg tablet 25 mg PO BID 10/01/24 10/07/24 History moexipril 15 mg tablet 15 mg PO BID 10/01/24 10/07/24 History nitroglycerin 0.4 mg sublingual 0.4 mg sublingual USEASDIRECTD PRN 10/01/24 10/07/24 History tablet (Nitrostat) oxycodone 15 mg tablet (Roxicodone) 15 mg PO QID PRN 10/01/24 10/07/24 History sacubitril 24 mg-valsartan 26 mg 1 tab PO BID 10/01/24 10/07/24 History tablet (Entresto) tizanidine 4 mg tablet (Zanaflex) 4 mg PO TID 10/01/24 10/07/24 History Allergies Allergies Allergy/AdvReac Type Severity Reaction Status Date / Time No Known Drug Allergies Allergy Verified 10/01/24 13:25 [NKDA] Labs 10/08/24 05:50 10/08/24 05:50 Labs: Laboratory WBC 10.8 X10^3/uL (3.6-10.0) H 10/07/24 10:33 RBC 4.03 X10^6/uL (4.7-6.0) L 10/07/24 10:33 Hgb 12.1 g/dL (13.5-18.0) L 10/07/24 10:33 Hct 37.6 % (42.0-54.0) L 10/07/24 10:33 MCV 93.4 fL (80.0-100.0) 10/07/24 10:33 MCH 29.9 pg (27.0-34.0) 10/07/24 10: MCHC 32.1 g/dL (33.0-35.0) L 10/07/24 10:33 RDW 14.4 % (11.6-16.5) 10/07/24 10:33 Plt Count 239 X10^3/uL (150.0-450.0) 10/07/24 10: MPV 9.6 fL (7.4-11.0) 10/07/24 10:33 Neut % (Auto) 69.2 % (42.0-75.0) 10/07/24 10:33 Lymph % (Auto) 16.9 % (21.0-51.0) L 10/07/24 10:33 [place] % (Auto) 12.6 % (0.0-13.0) 10/07/24 10:33 Eos % (Auto) 0.7 % (0.9-2.9) L 10/07/24 10:33 Baso % (Auto) 0.6 % (0.2-1.0) 10/07/24 10:33 Neut # (Auto) 7.5 x10^3/uL (2.2-4.8) H 10/07/24 10:33 Lymph # (Auto) 1.8 X10^3/uL (1.3-2.9) 10/07/24 10:33 [place] # (Auto) 1.4 x10^3/uL (0.3-0.8) H 10/07/24 10:33 Eos # (Auto) 0.1 x10^3/uL (0.0-0.2) 10/07/24 10:33 Baso # (Auto) 0.1 X10^3/uL (0.0-0.1) 10/07/24 10:33 Absolute Nucleated RBC 0.1 /100WBC 10/07/24 10:33 Sodium 134 mmol/L (136-145) L 10/07/24 10:33 Corrected Sodium TNP 10/07/24 10:33 Potassium 3.8 mmol/L (3.5-5.1) 10/07/24 10:33 Chloride 95 mmol/L (98-107) L 10/07/24 10:33 Carbon Dioxide 29.3 mmol/L (21-32) 10/07/24 10:33 BUN 15 mg/dL (7-18) 10/07/24 10:33 Creatinine 1.63 mg/dL (0.70-1.30) H 10/07/24 10:33 Est GFR (MDRD) Af Amer 53 (>60) L 10/07/24 10:33 Est GFR (MDRD) Non-Af 44 (>60) L 10/07/24 10:33 Glucose 49 mg/dL (65-99) L* 10/07/24 10:33 POC Glucose (mg/dL) 132 mg/dL (65-99) H 10/07/24 21:27 Calcium 9.3 mg/dL (8.5-10.1) 10/07/24 10:33 Corrected Calcium 9.9 mg/dL (8.5-10.1) 10/07/24 10:33 Total Bilirubin 0.80 mg/dL (0.2-1.0) 10/07/24 10:33 AST 33 Units/L (15-37) 10/07/24 10:33 ALT 32 Units/L (12-78) 10/07/24 10:33 Alkaline Phosphatase 101 Units/L (46-116) 10/07/24 10:33 Total Protein 8.3 g/dL (6.4-8.2) H 10/07/24 10:33 Albumin 3.3 g/dL (3.4-5.0) L 10/07/24 10:33 Globulin 5.0 g/dL (2.5-4.5) H 10/07/24 10:33 Albumin/Globulin Ratio 0.7 Ratio (1.1-2.1) L 10/07/24 10:33 Review of Systems Constitutional: See HPI Eyes: No Symptoms Reported ENT: No Symptoms Reported Respiratory: No Symptoms Reported Cardiovascular: See HPI Gastrointestinal: No Symptoms Reported Genitourinary: No Symptoms Reported Musculoskeletal: See HPI Skin: See HPI Neurological: See HPI Physical Exam Vital Signs: Vital Signs Temperature 99.5 F Temperature 100.0 F Pulse Rate 73 Pulse Rate 75 Pulse Rate 78 Pulse Rate 101 Pulse Rate 88 Pulse Rate 90 Pulse Rate 108 Pulse Rate 86 Respiratory Rate 20 Respiratory Rate 16 Respiratory Rate 14 Respiratory Rate 17 Respiratory Rate 17 Respiratory Rate 15 Respiratory Rate 14 Respiratory Rate 13 Respiratory Rate 16 Respiratory Rate 14 Respiratory Rate 21 Blood Pressure 140/63 Blood Pressure 131/60 Blood Pressure 119/53 Blood Pressure 139/65 Blood Pressure 159/68 Blood Pressure 106/54 Blood Pressure 138/63 Blood Pressure 136/63 O2 Sat by Pulse Oximetry 96 O2 Sat by Pulse Oximetry 96 O2 Sat by Pulse Oximetry 96 O2 Sat by Pulse Oximetry 94 O2 Sat by Pulse Oximetry 93 O2 Sat by Pulse Oximetry 94 O2 Sat by Pulse Oximetry 97 Oriented: Person Eyes: Normal Ear: Normal Nose: Normal Throat: Normal Respiratory: Clear Throughout Cardiovascular: Normal : Normal Auscultation: Bowel Sounds: Normal Palpation: Normal Tenderness: Normal Skin: Normal Musculoskeletal: Pulse Deficit (and crepitance to the right foot with maggot infestation. ) Psychiatric: Agitation Mood Description: Anxious Affect: Anxious Speech Pattern: Delayed and Slurred Assessment/Plan (1) Type 2 diabetes mellitus without complications: Status: Acute Plan: Sliding-scale insulin (2) History of CVA (cerebrovascular accident): Status: Acute Plan: Medical management (3) Gout: Status: Acute Plan: Home medications (4) Atherosclerosis of [place] arteries of extremities with rest pain, right leg: Status: Acute Plan: Revascularization of the right leg has failed. Will plan right below-knee amputation on
[2024-10-08] MEDS: SOMA TAB 350 MG PO PRN (16:23)
--- NOTE | 2024-10-08 17:04 | NOTE.SOAP ---
Soap Note Note for Day of Date of Exam: 10/08/24 Subjective Data Subjective Data: Patient with failed arterial reconstruction of the right leg. Patient had very poor runoff. Now with maggot infestation of the right foot which is controlled locally. Planning for right below-knee amputation tomorrow. Objective Data Temperature: 98.3 F Pulse Rate: 75 Respiratory Rate: 17 Blood Pressure: 131/59 O2 Sat by Pulse Oximetry: 94 Objective Data: Right calf warm. Right foot is controlled with Kerlix and Jem wrap Assessment Assessment: Failed revascularization of the right foot with gangrenous changes and maggot infestation. Plan Plan: Right below-knee amputation to be planned tomorrow. This will be discussed with the patient and his family prior to obtaining consent.
[2024-10-08] MEDS: HIBICLENS WASH EXT ONE (20:00)
[2024-10-09 05:18] LABS: BASOPHILS % (AUTO) 0.3 % (0.2-1.0); EOSINOPHILS % (AUTO) 0.3 % (0.9-2.9); HEMATOCRIT 35.7 % (42.0-54.0); HEMOGLOBIN 11.7 g/dL (13.5-18.0); LYMPHOCYTES # (AUTO) 1.2 X10^3/uL (1.3-2.9); LYMPHOCYTES % (AUTO) 12.9 % (21.0-51.0); MEAN CORPUSCULAR HEMOGLOBIN 30.3 pg (27.0-34.0); MEAN CORPUSCULAR HGB CONC 32.9 g/dL (33.0-35.0); MEAN CORPUSCULAR VOLUME 92.2 fL (80.0-100.0); MEAN PLATELET VOLUME 9.7 fL (7.4-11.0); MONOCYTES # (AUTO) 1.2 x10^3/uL (0.3-0.8); MONOCYTES % (AUTO) 12.8 % (0.0-13.0); NEUTROPHILS % (AUTO) 73.7 % (42.0-75.0); PLATELET COUNT 215 X10^3/uL (150.0-450.0); RED BLOOD COUNT 3.87 X10^6/uL (4.7-6.0); RED CELL DISTRIBUTION WIDTH 14.3 % (11.6-16.5); WHITE BLOOD COUNT 9.4 X10^3/uL (3.6-10.0)
[2024-10-09 05:34] LABS: ALANINE AMINOTRANSFERASE 24 Units/L (12-78); ALBUMIN 2.7 g/dL (3.4-5.0); ALKALINE PHOSPHATASE 91 Units/L (46-116); ASPARTATE AMINO TRANSFERASE 29 Units/L (15-37); BLOOD UREA NITROGEN 14 mg/dL (7-18); CALCIUM 9.6 mg/dL (8.5-10.1); CARBON DIOXIDE 27.9 mmol/L (21-32); CHLORIDE 100 mmol/L (98-107); COR CA(FOR HYPOALB) 10.6 mg/dL (8.5-10.1); GLUCOSE 94 mg/dL (65-99); POTASSIUM 3.6 mmol/L (3.5-5.1); SODIUM 136 mmol/L (136-145); TOTAL PROTEIN 7.4 g/dL (6.4-8.2); eGFR NON BLACK RACES 57 (>60)
[2024-10-09] MEDS: CONSULT PHARMACY - POTASSIUM & MAGNESIUM XX SCH ×2 (07:24)
[2024-10-09] MEDS: K-RIDER 10 MEQ/100 ML WATER 10 MEQ/100 ML BAG IV SCH (08:42)
[2024-10-09] MEDS: DIPRIVAN VIAL 20 ML ONE (12:08)
[2024-10-09] MEDS: VERSED ONE (12:10)
[2024-10-09] MEDS: FENTANYL VIAL INJ 100 mcg ONE (12:10)
[2024-10-09] MEDS: XYLOCAINE 2 % (PLAIN) ONE (12:37)
[2024-10-09] MEDS: ZOFRAN INJ 4 MG VIAL ONE (12:39)
[2024-10-09] MEDS: PEPCID 20 MG VIAL ONE (12:39)
[2024-10-09] MEDS: NS 1,000 ML IV 1,000 ML ONE (13:40)
[2024-10-09] MEDS: NS 1,000 ML IV 500 ML IV PRN (13:45)
[2024-10-09] MEDS: PEPCID 20 MG VIAL IVP PRN (13:47)
[2024-10-09] MEDS: ZOFRAN INJ 4 MG VIAL IVP PRN ×2 (13:47→22:19)
[2024-10-09] MEDS ORDERED: ULTANE GAS IN ONE (13:51)
[2024-10-09] MEDS: NS 100 ML IV 100 ML ONE (13:51)
[2024-10-09] MEDS: ANCEF VIAL 1 GRAM ONE (13:51)
[2024-10-09] MEDS ORDERED: KETAMINE HCL ONE (13:51)
[2024-10-09] MEDS: ANCEF VIAL 1 GRAM IV PRN (13:55)
[2024-10-09] MEDS: XYLOCAINE 2 % (PLAIN) INJ PRN (14:02)
[2024-10-09] MEDS: FENTANYL VIAL INJ 100 mcg IVP PRN (14:03)
[2024-10-09] MEDS: DIPRIVAN VIAL 150 ML IVP PRN (14:03)
[2024-10-09] MEDS: VERSED IVP PRN (14:03)
[2024-10-09] MEDS: KETAMINE HCL IV PRN (14:03)
[2024-10-09] MEDS: EPHEDRINE SULFATE INJ IVP PRN (14:07)
[2024-10-09] MEDS: NEO-SYNEPHRINE INJ IVP PRN (14:08)
[2024-10-09] MEDS ORDERED: REGLAN INJ 10 MG VIAL IVP PRN (14:29)
[2024-10-09] MEDS ORDERED: BARHEMSYS INJ IVP PRN (14:29)
--- NOTE | 2024-10-09 14:53 | OR.IMMED ---
IMMEDIATE POST-OP NOTE Immediate Post-Op Note Date of surgery/procedure: 10/09/24 Pre-Op Diagnosis: Failed revascularization right foot, maggot infestation right Post-Op Diagnosis: same Procedure: Right below-knee amputation Description of Procedure: dictated Surgeon/Senior Graphic Designer: Winston Findings: as above Estimated Blood Loss: 500 cc Complications: none Progress Notes: to PACU then return to CCU when ready
[2024-10-09] MEDS: DILAUDID INJ IVP PRN (15:03)
[2024-10-09] MEDS: BENADRYL INJ 50 MG VIAL IVP PRN (22:26)
[2024-10-10 04:59] LABS: BASOPHILS % (AUTO) 0.4 % (0.2-1.0); HEMATOCRIT 30.7 % (42.0-54.0); LYMPHOCYTES # (AUTO) 1.1 X10^3/uL (1.3-2.9); LYMPHOCYTES % (AUTO) 9.1 % (21.0-51.0); MEAN CORPUSCULAR HGB CONC 32.7 g/dL (33.0-35.0); MEAN CORPUSCULAR VOLUME 91.6 fL (80.0-100.0); MEAN PLATELET VOLUME 9.5 fL (7.4-11.0); MONOCYTES # (AUTO) 1.4 x10^3/uL (0.3-0.8); MONOCYTES % (AUTO) 12.3 % (0.0-13.0); NEUTROPHILS # (AUTO) 9.1 x10^3/uL (2.2-4.8); NEUTROPHILS % (AUTO) 78.2 % (42.0-75.0); PLATELET COUNT 227 X10^3/uL (150.0-450.0); RED BLOOD COUNT 3.35 X10^6/uL (4.7-6.0); RED CELL DISTRIBUTION WIDTH 14.2 % (11.6-16.5); WHITE BLOOD COUNT 11.6 X10^3/uL (3.6-10.0)
[2024-10-10] MEDS: DILAUDID INJ ONE (08:31)
[2024-10-10] MEDS: K-DUR TAB 20 MEQ PO SCH (09:17)
[2024-10-10] MEDS: MAG-OX TAB PO SCH (09:17)
[2024-10-10] MEDS: CONSULT PHARMACY - POTASSIUM & MAGNESIUM XX SCH (15:05)
--- NOTE | 2024-10-10 15:42 | NOTE.SOAP ---
Soap Note Note for Day of Date of Exam: 10/10/24 Subjective Data Subjective Data: Postoperative day 1 after right below-knee amputation. Patient doing well. Tolerating a diet. Awaiting placement at senior living facility Objective Data Temperature: 98.1 F Pulse Rate: 96 Respiratory Rate: 19 Blood Pressure: 119/68 O2 Sat by Pulse Oximetry: 96 Objective Data: Patient doing well post procedure. Tolerating a diet. Dressing intact without bleeding or drainage. Postoperative hemoglobin 10 g, basic metabolic profile within normal limits. Assessment Assessment: Status post right below-knee amputation for ischemic changes and maggot infestation Plan Plan: Awaiting placement senior living facility
[2024-10-11 06:22] LABS: BASOPHILS % (AUTO) 0.4 % (0.2-1.0); EOSINOPHILS % (AUTO) 0.1 % (0.9-2.9); HEMATOCRIT 29.7 % (42.0-54.0); HEMOGLOBIN 9.7 g/dL (13.5-18.0); LYMPHOCYTES # (AUTO) 1.4 X10^3/uL (1.3-2.9); LYMPHOCYTES % (AUTO) 12.2 % (21.0-51.0); MEAN CORPUSCULAR HEMOGLOBIN 29.8 pg (27.0-34.0); MEAN CORPUSCULAR HGB CONC 32.5 g/dL (33.0-35.0); MEAN CORPUSCULAR VOLUME 91.8 fL (80.0-100.0); MEAN PLATELET VOLUME 9.3 fL (7.4-11.0); MONOCYTES # (AUTO) 1.7 x10^3/uL (0.3-0.8); MONOCYTES % (AUTO) 15.3 % (0.0-13.0); NEUTROPHILS # (AUTO) 8.2 x10^3/uL (2.2-4.8); PLATELET COUNT 234 X10^3/uL (150.0-450.0); RED BLOOD COUNT 3.24 X10^6/uL (4.7-6.0); RED CELL DISTRIBUTION WIDTH 14.1 % (11.6-16.5); WHITE BLOOD COUNT 11.3 X10^3/uL (3.6-10.0)
[2024-10-11 06:41] LABS: ALANINE AMINOTRANSFERASE 54 Units/L (12-78); ALBUMIN 2.6 g/dL (3.4-5.0); ALKALINE PHOSPHATASE 95 Units/L (46-116); ASPARTATE AMINO TRANSFERASE 73 Units/L (15-37); BLOOD UREA NITROGEN 12 mg/dL (7-18); CALCIUM 9.4 mg/dL (8.5-10.1); CARBON DIOXIDE 29.7 mmol/L (21-32); CHLORIDE 98 mmol/L (98-107); COR CA(FOR HYPOALB) 10.5 mg/dL (8.5-10.1); CREATININE 1.18 mg/dL (0.70-1.30); GLUCOSE 109 mg/dL (65-99); MAGNESIUM 2.1 mg/dL (2.0-2.9); POTASSIUM 4.1 mmol/L (3.5-5.1); SODIUM 134 mmol/L (136-145); TOTAL PROTEIN 7.2 g/dL (6.4-8.2); eGFR NON BLACK RACES > 60 (>60)
--- NOTE | 2024-10-11 17:15 | DR.UPDATE ---
H&P UPDATE (1) Type 2 diabetes mellitus without complications: History and Physical Update: History and Physical reviewed and patient examined. Changes noted: NO Yes with the following: (2) History of CVA (cerebrovascular accident): History and Physical Update: History and Physical reviewed and patient examined. Changes noted: NO Yes with the following: (3) Gout: History and Physical Update: History and Physical reviewed and patient examined. Changes noted: NO Yes with the following: (4) Atherosclerosis of [place] arteries of extremities with rest pain, right leg: History and Physical Update: History and Physical reviewed and patient examined. Changes noted: NO Yes with the following: Review Yes Any changes to H&P?: No
[2024-10-12] MEDS: MILK OF MAGNESIA ONE (08:13)
[2024-10-12] MEDS: MILK OF MAGNESIA PO SCH (08:15)
--- NOTE | 2024-10-12 11:10 | NOTE.SOAP ---
Soap Note Note for Day of Date of Exam: 10/11/24 Subjective Data Subjective Data: Patient stable , POD #2 after right below knee amputation. Objective Data Temperature: 98.7 F Pulse Rate: 90 Respiratory Rate: 18 Blood Pressure: 143/77 O2 Sat by Pulse Oximetry: 7 Objective Data: Dressing intact right leg , no drainage , Hgb=9.7, WBD=11.3, BMP is WNL. Assessment Assessment: S/P right below knee amputation Plan Plan: await SNF placement
[2024-10-12] MEDS: ZOFRAN INJ 4 MG VIAL IVP PRN (17:16)
[2024-10-12] MEDS: COLACE CAP 100 MG PO SCH (21:39)
--- NOTE | 2024-10-12 23:38 | NOTE.SOAP ---
Soap Note Note for Day of Date of Exam: 10/12/24 Subjective Data Subjective Data: Postop day 3 after right below-knee amputation. Awaiting placement Objective Data Temperature: 97.8 F Pulse Rate: 98 Respiratory Rate: 18 Blood Pressure: 121/56 O2 Sat by Pulse Oximetry: 100 Objective Data: Dressing intact, dressing without drainage right below-knee stump Assessment Assessment: Ischemic changes right foot requiring right below-knee amputation Plan Plan: Awaiting custodial facility
[2024-10-13 05:45] LABS: BASOPHILS % (AUTO) 0.2 % (0.2-1.0); HEMATOCRIT 30.5 % (42.0-54.0); HEMOGLOBIN 9.8 g/dL (13.5-18.0); LYMPHOCYTES % (AUTO) 4.7 % (21.0-51.0); MEAN CORPUSCULAR HEMOGLOBIN 29.5 pg (27.0-34.0); MEAN CORPUSCULAR HGB CONC 32.1 g/dL (33.0-35.0); MEAN CORPUSCULAR VOLUME 91.9 fL (80.0-100.0); MEAN PLATELET VOLUME 8.9 fL (7.4-11.0); MONOCYTES # (AUTO) 1.5 x10^3/uL (0.3-0.8); MONOCYTES % (AUTO) 7.5 % (0.0-13.0); NEUTROPHILS # (AUTO) 17.9 x10^3/uL (2.2-4.8); NEUTROPHILS % (AUTO) 87.6 % (42.0-75.0); PLATELET COUNT 307 X10^3/uL (150.0-450.0); RED BLOOD COUNT 3.32 X10^6/uL (4.7-6.0); RED CELL DISTRIBUTION WIDTH 14.2 % (11.6-16.5)
[2024-10-13 05:59] LABS: WHITE BLOOD COUNT 20.4 X10^3/uL (3.6-10.0)
[2024-10-13 06:21] LABS: ALANINE AMINOTRANSFERASE 61 Units/L (12-78); ALBUMIN 2.5 g/dL (3.4-5.0); ALKALINE PHOSPHATASE 100 Units/L (46-116); ASPARTATE AMINO TRANSFERASE 67 Units/L (15-37); BLOOD UREA NITROGEN 15 mg/dL (7-18); CALCIUM 9.3 mg/dL (8.5-10.1); CARBON DIOXIDE 26.7 mmol/L (21-32); CHLORIDE 98 mmol/L (98-107); COR CA(FOR HYPOALB) 10.5 mg/dL (8.5-10.1); COR NA(FOR HYPERGLY) 138 mmol/L (136-145); CREATININE 1.17 mg/dL (0.70-1.30); GLUCOSE 119 mg/dL (65-99); MAGNESIUM 2.2 mg/dL (2.0-2.9); POTASSIUM 3.9 mmol/L (3.5-5.1); SODIUM 138 mmol/L (136-145); TOTAL PROTEIN 7.4 g/dL (6.4-8.2); eGFR NON BLACK RACES > 60 (>60)
[2024-10-13] MEDS: CITROMA PO ONE (11:58)
--- NOTE | 2024-10-14 00:14 | NOTE.SOAP ---
Soap Note Note for Day of Date of Exam: 10/13/24 Subjective Data Subjective Data: Postoperative day #4 after right below-knee amputation. Patient white blood cell count is now 20.4 patient not running a fever. Objective Data Temperature: 98.3 F Pulse Rate: 86 Respiratory Rate: 16 Blood Pressure: 125/57 O2 Sat by Pulse Oximetry: 97 Objective Data: Dressing of right below-knee amputation intact. Assessment Assessment: Status post right below-knee amputation for ischemic right foot. Plan Plan: Continue current IV antibiotics. Will take down dressing and observe wound
[2024-10-14 06:20] LABS: BASOPHILS % (AUTO) 0.2 % (0.2-1.0); EOSINOPHILS % (AUTO) 0.1 % (0.9-2.9); HEMATOCRIT 29.4 % (42.0-54.0); HEMOGLOBIN 9.6 g/dL (13.5-18.0); LYMPHOCYTES # (AUTO) 1.3 X10^3/uL (1.3-2.9); LYMPHOCYTES % (AUTO) 6.1 % (21.0-51.0); MEAN CORPUSCULAR HEMOGLOBIN 29.6 pg (27.0-34.0); MEAN CORPUSCULAR HGB CONC 32.8 g/dL (33.0-35.0); MEAN CORPUSCULAR VOLUME 90.4 fL (80.0-100.0); MEAN PLATELET VOLUME 9.1 fL (7.4-11.0); MONOCYTES # (AUTO) 1.4 x10^3/uL (0.3-0.8); MONOCYTES % (AUTO) 6.3 % (0.0-13.0); NEUTROPHILS # (AUTO) 19.2 x10^3/uL (2.2-4.8); NEUTROPHILS % (AUTO) 87.3 % (42.0-75.0); PLATELET COUNT 309 X10^3/uL (150.0-450.0); RED BLOOD COUNT 3.26 X10^6/uL (4.7-6.0); RED CELL DISTRIBUTION WIDTH 14.1 % (11.6-16.5)
[2024-10-14 06:33] LABS: ALANINE AMINOTRANSFERASE 53 Units/L (12-78); ALBUMIN 2.5 g/dL (3.4-5.0); ALKALINE PHOSPHATASE 109 Units/L (46-116); ASPARTATE AMINO TRANSFERASE 62 Units/L (15-37); BLOOD UREA NITROGEN 17 mg/dL (7-18); CALCIUM 9.1 mg/dL (8.5-10.1); CHLORIDE 97 mmol/L (98-107); COR CA(FOR HYPOALB) 10.3 mg/dL (8.5-10.1); CREATININE 1.13 mg/dL (0.70-1.30); GLUCOSE 96 mg/dL (65-99); MAGNESIUM 2.5 mg/dL (2.0-2.9); SODIUM 135 mmol/L (136-145); TOTAL PROTEIN 7.4 g/dL (6.4-8.2); eGFR NON BLACK RACES > 60 (>60)
[2024-10-14 07:17] LABS: PLATELET MORPHOLOGY COMMENT NORMAL (NORMAL)
--- NOTE | 2024-10-14 11:21 | DR.OPNOTE ---
OP NOTE Pre-Op Diagnosis: Gangrenous right foot with maggot infestation Post-Op Diagnosis: Same Procedure Date Date Of Procedure: 10/09/24 Procedure: PROCEDURE: Right below-knee amputation NARRATIVE: The patient was taken to the operative suite and placed in supine position. General endotracheal anesthesia induced. Entire right leg prepped and draped in sterile fashion. Timeout for the procedure obtained. A dog- legged incision was performed starting 1 handsbreadth below the tibial tuberosity and all skin incisions performed with a 15 knife blade. Araseli-ostial elevator used to raise the periosteum of the tibia. After cautery used to dissect throught the anterior tibial compartment ,anterior tibial artery and vein divided between clamps and tied with 2-0 silk suture ligatures. The periosteum of the tibia elevated and the tibia divided with Gigli saw. Fibula divided high above the division of the tibia with a bone cutter. Amputation knife used to complete the amputation and all vessels clamped and tied with 2-0 silk suture ligatures. Both flaps irrigated and the rest of hemostasis obtained electrocautery. The 2 flaps approximated interrupted 2-0 Vicryl sutures. Skin closed with skin rosibel. Compressive dressing applied. Patient extubated taken to PACU in good condition. Type of Anesthesia: General Anesthetic w/ETT Findings: As above Specimen/Pathology: Right below-knee amputation Type of Fluids Used:: Lactated Ringers EBL: Less than 100cc Complications:: none Needle/Sponge Count:: correct Disposition/Condition: Pt. tolerated procedure without difficulty. Extubated in the OR and taken to PACU in stable condition.
[2024-10-15 06:01] LABS: BASOPHILS % (AUTO) 0.3 % (0.2-1.0); EOSINOPHILS % (AUTO) 0.1 % (0.9-2.9); HEMATOCRIT 28.4 % (42.0-54.0); HEMOGLOBIN 9.2 g/dL (13.5-18.0); LYMPHOCYTES # (AUTO) 1.3 X10^3/uL (1.3-2.9); MEAN CORPUSCULAR HEMOGLOBIN 29.5 pg (27.0-34.0); MEAN CORPUSCULAR HGB CONC 32.6 g/dL (33.0-35.0); MEAN CORPUSCULAR VOLUME 90.7 fL (80.0-100.0); MEAN PLATELET VOLUME 8.9 fL (7.4-11.0); MONOCYTES # (AUTO) 1.3 x10^3/uL (0.3-0.8); MONOCYTES % (AUTO) 7.1 % (0.0-13.0); NEUTROPHILS # (AUTO) 15.9 x10^3/uL (2.2-4.8); NEUTROPHILS % (AUTO) 85.5 % (42.0-75.0); PLATELET COUNT 346 X10^3/uL (150.0-450.0); RED BLOOD COUNT 3.13 X10^6/uL (4.7-6.0); RED CELL DISTRIBUTION WIDTH 14.4 % (11.6-16.5); WHITE BLOOD COUNT 18.6 X10^3/uL (3.6-10.0)
[2024-10-15 06:10] LABS: ALANINE AMINOTRANSFERASE 39 Units/L (12-78); ALBUMIN 2.4 g/dL (3.4-5.0); ALKALINE PHOSPHATASE 95 Units/L (46-116); ASPARTATE AMINO TRANSFERASE 41 Units/L (15-37); BLOOD UREA NITROGEN 23 mg/dL (7-18); CARBON DIOXIDE 31.4 mmol/L (21-32); CHLORIDE 98 mmol/L (98-107); COR CA(FOR HYPOALB) 10.3 mg/dL (8.5-10.1); GLUCOSE 101 mg/dL (65-99); POTASSIUM 4.1 mmol/L (3.5-5.1); SODIUM 135 mmol/L (136-145); TOTAL PROTEIN 7.3 g/dL (6.4-8.2); eGFR NON BLACK RACES 49 (>60)
--- NOTE | 2024-10-15 09:43 | NOTE.SOAP ---
Soap Note Note for Day of Date of Exam: 10/14/24 Subjective Data Subjective Data: Status post right below-knee amputation. Dressing removed. Objective Data Temperature: 98.3 F Pulse Rate: 97 Respiratory Rate: 16 Blood Pressure: 122/85 O2 Sat by Pulse Oximetry: 94 Objective Data: Dressing removed. Stump appears excellent, no drainage good color Assessment Assessment: Status post right below-knee amputation. Looking well. Plan Plan: Still awaiting approval for shelter facility
--- NOTE | 2024-10-15 12:29 | W.DIS.FURT ---
Summary of Discharge Discharge Summary of Date Date of Exam: 10/15/24 Admission Date Date of Admission: 10/07/24 Admission Diagnosis Hospital Course: This is a 74-year-old male who had extensive ischemia of the right leg. Past history of left below knee amputation. We tried to perform arterial intervention of the right leg to assist him with dressing and going to the bathroom and he had extensive intervention which ultimately failed and he presented on the day of admission with maggot infestation of the right foot. He is admitted, placed on IV antibiotics and prepared for surgery. On 10/09 he underwent a right below-knee amputation. He has done well since that time. Pain has been controlled with narcotics and has been transitioned to Motrin for pain . The stump has excellent healing with no drainage or redness. He is dis charged to care home facility on usual home medications plus ibuprofen, 60 mg, 3 times daily as needed pain. He will follow-up with me in 2 weeks for staple removal. Vital Signs: Vital Signs (72 hours) 10/12/24 23:38 10/15/24 09:43 10/14/24 00:13 Temperature 97.8 F 98.3 F 98.3 F Pulse Rate 98 H 97 H 86 Respiratory Rate 18 16 16 Blood Pressure 121/56 122/85 125/57 O2 Sat by Pulse Oximetry 100 94 L 97 Oxygen Delivery Method Oxygen Flow Rate FIO2% 10/12/24 16:00 10/12/24 20:00 10/12/24 20:05 Temperature 98.4 F 99.8 F H Pulse Rate 94 H 98 H Respiratory Rate 18 18 Blood Pressure 122/64 121/56 O2 Sat by Pulse Oximetry 96 100 Oxygen Delivery Method Nasal Cannula Nasal Cannula Nasal Cannula Oxygen Flow Rate 2 FIO2% 28 10/12/24 20:05 10/12/24 21:55 10/12/24 19:00 Temperature Pulse Rate 86 Respiratory Rate 18 Blood Pressure O2 Sat by Pulse Oximetry 100 Oxygen Delivery Method Nasal Cannula Oxygen Flow Rate 2 FIO2% 10/13/24 00:42 10/13/24 00:00 10/12/24 22:25 Temperature 98.1 F Pulse Rate 97 H Respiratory Rate 19 19 Blood Pressure 140/62 O2 Sat by Pulse Oximetry 98 Oxygen Delivery Method Nasal Cannula Nasal Cannula Oxygen Flow Rate 2 2 FIO2% 28 10/13/24 03:04 10/13/24 03:34 10/13/24 04:00 Temperature 98.0 F Pulse Rate 81 Respiratory Rate 19 18 19 Blood Pressure 107/53 O2 Sat by Pulse Oximetry 96 Oxygen Delivery Method Nasal Cannula Oxygen Flow Rate 2 FIO2% 10/13/24 07:57 10/13/24 08:19 10/13/24 09:16 Temperature 98.1 F Pulse Rate 80 Respiratory Rate 18 18 Blood Pressure 105/72 O2 Sat by Pulse Oximetry 93 L Oxygen Delivery Method Nasal Cannula Nasal Cannula Oxygen Flow Rate 2 2 FIO2% 10/13/24 08:00 10/13/24 09:19 10/13/24 12:34 Temperature 98.1 F 97.0 F L Pulse Rate 80 84 Respiratory Rate 18 19 18 Blood Pressure 105/72 99/55 O2 Sat by Pulse Oximetry 93 L 92 L Oxygen Delivery Method Nasal Cannula Nasal Cannula Oxygen Flow Rate 2 2 FIO2% 10/13/24 14:16 10/13/24 14:46 10/13/24 16:00 Temperature 97.8 F Pulse Rate 83 Respiratory Rate 18 20 18 Blood Pressure 124/58 O2 Sat by Pulse Oximetry 97 Oxygen Delivery Method Nasal Cannula Oxygen Flow Rate 2 FIO2% 10/13/24 20:00 10/13/24 21:15 10/13/24 19:00 Temperature 98.4 F Pulse Rate 84 Respiratory Rate 18 20 Blood Pressure 106/57 O2 Sat by Pulse Oximetry 97 Oxygen Delivery Method Nasal Cannula Nasal Cannula Oxygen Flow Rate 2 2 FIO2% 10/13/24 23:51 10/13/24 22:15 10/14/24 01:13 Temperature 98.3 F Pulse Rate 86 Respiratory Rate 16 20 18 Blood Pressure 125/57 O2 Sat by Pulse Oximetry 97 Oxygen Delivery Method Nasal Cannula Oxygen Flow Rate 2 FIO2% 10/14/24 04:27 10/13/24 21:15 10/14/24 04:00 Temperature 98.5 F Pulse Rate 90 Respiratory Rate 18 18 Blood Pressure 120/60 O2 Sat by Pulse Oximetry 97 Oxygen Delivery Method Nasal Cannula Nasal Cannula Oxygen Flow Rate 2 2 FIO2% 28 10/14/24 01:43 10/14/24 05:27 10/14/24 11:56 Temperature Pulse Rate Respiratory Rate 20 18 19 Blood Pressure O2 Sat by Pulse Oximetry Oxygen Delivery Method Oxygen Flow Rate FIO2% 10/14/24 08:42 10/14/24 08:00 10/14/24 09:02 Temperature 98.7 F Pulse Rate 97 H Respiratory Rate 18 Blood Pressure 139/66 O2 Sat by Pulse Oximetry 99 Oxygen Delivery Method Nasal Cannula Nasal Cannula Room Air Oxygen Flow Rate 2 2 2 FIO2% 28 10/14/24 12:00 10/14/24 12:56 10/14/24 15:12 Temperature 97.9 F Pulse Rate 91 H Respiratory Rate 18 19 20 Blood Pressure 114/76 O2 Sat by Pulse Oximetry 95 Oxygen Delivery Method Nasal Cannula Oxygen Flow Rate 2 FIO2% 10/14/24 15:41 10/14/24 16:00 10/14/24 20:42 Temperature 98 F Pulse Rate 91 H Respiratory Rate 18 18 Blood Pressure 112/58 O2 Sat by Pulse Oximetry 92 L Oxygen Delivery Method Nasal Cannula Nasal Cannula Oxygen Flow Rate 2 2 FIO2% 28 10/14/24 20:00 10/14/24 19:00 10/15/24 00:00 Temperature 98.3 F 98.2 F Pulse Rate 97 H 81 Respiratory Rate 16 16 Blood Pressure 122/85 144/87 O2 Sat by Pulse Oximetry 94 L 94 L Oxygen Delivery Method Nasal Cannula Nasal Cannula Nasal Cannula Oxygen Flow Rate 2 2 2 FIO2% 10/15/24 04:00 10/15/24 07:00 10/15/24 08:20 Temperature 98.3 F Pulse Rate 81 Respiratory Rate 20 Blood Pressure 140/82 O2 Sat by Pulse Oximetry 94 L Oxygen Delivery Method Nasal Cannula Nasal Cannula Nasal Cannula Oxygen Flow Rate 2 2 2 FIO2% 28 10/15/24 08:00 10/15/24 11:50 Temperature 97.6 F Pulse Rate 81 Respiratory Rate 18 18 Blood Pressure 133/62 O2 Sat by Pulse Oximetry 95 Oxygen Delivery Method Nasal Cannula Oxygen Flow Rate 2 FIO2% Labs: Laboratory Last Values WBC 18.6 X10^3/uL (3.6-10.0) H 10/15/24 05:27 RBC 3.13 X10^6/uL (4.7-6.0) L 10/15/24 05:27 Hgb 9.2 g/dL (13.5-18.0) L 10/15/24 05:27 Hct 28.4 % (42.0-54.0) L 10/15/24 05:27 MCV 90.7 fL (80.0-100.0) 10/15/24 05:27 MCH 29.5 pg (27.0-34.0) 10/15/24 05:27 MCHC 32.6 g/dL (33.0-35.0) L 10/15/24 05:27 RDW 14.4 % (11.6-16.5) 10/15/24 05:27 Plt Count 346 X10^3/uL (150.0-450.0) 10/15/24 05:27 Plt Count Comment Adequate (ADEQUATE) 10/14/24 05:12 MPV 8.9 fL (7.4-11.0) 10/15/24 05:27 Neut % (Auto) 85.5 % (42.0-75.0) H 10/15/24 05:27 Lymph % (Auto) 7.0 % (21.0-51.0) L 10/15/24 05:27 [place] % (Auto) 7.1 % (0.0-13.0) 10/15/24 05:27 Eos % (Auto) 0.1 % (0.9-2.9) L 10/15/24 05:27 Baso % (Auto) 0.3 % (0.2-1.0) 10/15/24 05:27 Neut # (Auto) 15.9 x10^3/uL (2.2-4.8) H 10/15/24 05:27 Lymph # (Auto) 1.3 X10^3/uL (1.3-2.9) 10/15/24 05:27 [place] # (Auto) 1.3 x10^3/uL (0.3-0.8) H 10/15/24 05:27 Eos # (Auto) 0.0 x10^3/uL (0.0-0.2) 10/15/24 05:27 Baso # (Auto) 0.0 X10^3/uL (0.0-0.1) 10/15/24 05:27 Absolute Nucleated RBC 0.1 /100WBC 10/15/24 05:27 Total Counted 100 10/14/24 05:12 Neutrophils % (Manual) 85 % (39-76) H 10/14/24 05:12 Lymphocytes % (Manual) 11 % (13-43) L 10/14/24 05:12 Monocytes % (Manual) 4 % (4-9) 10/14/24 05:12 Plt Morphology Comment Normal (NORMAL) 10/14/24 05:12 RBC Morphology Normal (NORMAL) 10/14/24 05:12 Sodium 135 mmol/L (136-145) L 10/15/24 05:27 Corrected Sodium TNP 10/15/24 05:27 Potassium 4.1 mmol/L (3.5-5.1) 10/15/24 05:27 Chloride 98 mmol/L (98-107) 10/15/24 05:27 Carbon Dioxide 31.4 mmol/L (21-32) 10/15/24 05:27 BUN 23 mg/dL (7-18) H 10/15/24 05:27 Creatinine 1.50 mg/dL (0.70-1.30) H 10/15/24 05:27 Est GFR (MDRD) Af Amer 59 (>60) 10/15/24 05:27 Est GFR (MDRD) Non-Af 49 (>60) L 10/15/24 05:27 Glucose 101 mg/dL (65-99) H 10/15/24 05:27 POC Glucose (mg/dL) 103 mg/dL (65-99) H 10/15/24 05:10 Calcium 9.0 mg/dL (8.5-10.1) 10/15/24 05:27 Corrected Calcium 10.3 mg/dL (8.5-10.1) H 10/15/24 05:27 Magnesium 2.5 mg/dL (2.0-2.9) 10/14/24 05:12 Total Bilirubin 0.90 mg/dL (0.2-1.0) 10/15/24 05:27 AST 41 Units/L (15-37) H 10/15/24 05:27 ALT 39 Units/L (12-78) 10/15/24 05:27 Alkaline Phosphatase 95 Units/L (46-116) 10/15/24 05:27 Total Protein 7.3 g/dL (6.4-8.2) 10/15/24 05:27 Albumin 2.4 g/dL (3.4-5.0) L 10/15/24 05:27 Globulin 4.9 g/dL (2.5-4.5) H 10/15/24 05:27 Albumin/Globulin Ratio 0.5 Ratio (1.1-2.1) L 10/15/24 05:27 Reason For Visit: RIGHT LOWER EXT CRITICAL ISCHEMIA Discharge Date Discharge Date: 10/15/24 Discharge Diagnosis All Active Problems (Updated 10/08/24 @ 11:38 by Porfirio Montero) Gout (Acute) History of CVA (cerebrovascular accident) (Acute) Type 2 diabetes mellitus without complications (Acute) Atherosclerosis of [place] arteries of extremities with rest pain, right leg (Acute) Plan of Treatment: Continue with present treatment and follow up plan. Pt is to keep follow up appointment as instructed and take medications as ordered. Discharge Medications Discharge Medications: No Known Drug Allergies [NKDA] Allergy (Verified 10/01/24 13:25) Discharge Disposition Assessment: see hospital course Discharge Plan Discharge Plan Hospital Course: This is a 74-year-old male who had extensive ischemia of the right leg. Past history of left below knee amputation. We tried to perform arterial intervention of the right leg to assist him with dressing and going to the bathroom and he had extensive intervention which ultimately failed and he presented on the day of admission with maggot infestation of the right foot. He is admitted, placed on IV antibiotics and prepared for surgery. On 10/09 he underwent a right below-knee amputation. He has done well since that time. Estella n has been controlled with narcotics and has been transitioned to Motrin for pain . The stump has excellent healing with no drainage or redness. He is discharged to care home facility on usual home medications plus ibuprofen, 60 mg, 3 times daily as needed pain. He will follow-up with me in 2 weeks for staple removal. Patient Disposition: HOME HEALTH SERVICE Condition: Stable Health Concerns: Post Hospitalization: new medications and changes needed to prevent readmission or further decline. Pt educated and given instructions on all concerns. Plan of Treatment: Continue with present treatment and follow up plan. Pt is to keep follow up appointment as instructed and take medications as ordered. Assessment: see hospital course Prescription drug monitoring program results: PDMP was not reviewed Prescriptions: Continued carisoprodol 350 mg tablet 350 mg PO TID PRN tizanidine [Zanaflex] 4 mg tablet 4 mg PO TID glipizide [Glucotrol XL] 10 mg tablet extended release 24hr 10 mg PO BID clopidogrel [Plavix] 75 mg tablet 75 mg PO QDAY allopurinol 100 mg tablet 200 mg PO QDAY meloxicam 7.5 mg tablet 7.5 mg PO QDAY gabapentin [Neurontin] 800 mg tablet 800 mg PO QID amlodipine [Norvasc] 10 mg tablet 10 mg PO QDAY moexipril 15 mg tablet 15 mg PO BID nitroglycerin [Nitrostat] 0.4 mg tablet, sublingual 0.4 mg sublingual USEASDIRECTD PRN Rx Instructions: PLACE 1 TABLET UNDER TONGUE EVERY 5 MINUTES UP 3 DOSES NEEDED. colchicine [Colcrys] 0.6 mg tablet 0.6 mg PO Q12H celecoxib [Celebrex] 100 mg capsule 100 mg PO QDAY metoprolol tartrate 25 mg tablet 25 mg PO BID fesoterodine [Toviaz] 8 mg tablet extended release 24 hr 8 mg PO DAILY Eliquis 5 mg tablet 5 mg PO BID insulin degludec [Tresiba FlexTouch U-200] 200 unit/mL (3 mL) insulin pen 55 unit SUBCUT DAILY Patient Comments: [NO ORIGINAL SIG] dapagliflozin propanediol [Farxiga] 10 mg tablet 10 mg PO QDAY Entresto 24-26 mg tablet 1 tab PO BID Discontinued oxycodone [Roxicodone] 15 mg tablet 15 mg PO QID PRN Follow ups/Referrals Follow ups/Referrals: MARLENI COOPER [STAFF PHYSICIAN] - KEVIN CARRANZA [Primary Care Provider] - 1 WEEK Porfirio Montero [STAFF PHYSICIAN] - 10/15/24 3:30 pm Instructions Instructions: Stump and Prosthesis Care, Living With an Amputation, Phantom Limb Pain, Gangrene Stand Alone Forms: Find Help Web Site, [facility] Follow Up Care
[2024-10-15 13:18] VITALS: RESP 20
[2024-10-15 13:24] VITALS: BP 116/56; PULSE 88; TEMP 97.8; O2SAT 95
== END 2024-10-15 14:20 ==
LOC: ICU → MED/SURG 10-10 15:23
PROVIDERS: ADMIT Surgery; ATTEND Surgery
DX: Z79.4 Long term (current) use of insulin; Z86.73 Personal history of transient ischemic attack (TIA), and cerebral infarction without residual deficits; I96 Gangrene, not elsewhere classified; I25.810 Atherosclerosis of coronary artery bypass graft(s) without angina pectoris; M10.9 Gout, unspecified; I70.221 Atherosclerosis of native arteries of extremities with rest pain, right leg; Z89.512 Acquired absence of left leg below knee; E11.65 Type 2 diabetes mellitus with hyperglycemia; Z72.0 Tobacco use; J44.9 Chronic obstructive pulmonary disease, unspecified; I10 Essential (primary) hypertension; B87.1 Wound myiasis; R26.89 Other abnormalities of gait and mobility